=== PATIENT | male | born 1965 | race Caucasian/White ===

== ENCOUNTER → 2023-07-10 12:38 | Outpatient (REF) | payer OTHER, SELFPAY | LOC: HWRCS 12:38 | PROVIDERS: ATTENDING PHYSICIAN Physician Assistant Medical | DX: I10 Essential (primary) hypertension (principal); I34.0 Nonrheumatic mitral (valve) insufficiency; R01.1 Cardiac murmur, unspecified | CPT/HCPCS: 93306 ==

== ENCOUNTER → 2024-01-12 13:53 | Outpatient (REF) | payer OTHER, SELFPAY | LOC: HWRCS 13:53 | PROVIDERS: ATTENDING PHYSICIAN Internal Medicine; FAMILY PHYSICIAN Physician Assistant Medical | DX: I10 Essential (primary) hypertension (principal); I34.0 Nonrheumatic mitral (valve) insufficiency; I35.1 Nonrheumatic aortic (valve) insufficiency; I37.0 Nonrheumatic pulmonary valve stenosis; I77.810 Thoracic aortic ectasia | CPT/HCPCS: 93306 ==

== ENCOUNTER → 2024-06-30 15:51 | Outpatient (REF) | payer OTHER, SELFPAY | LOC: RCS 15:51 | PROVIDERS: ATTENDING PHYSICIAN Internal Medicine; FAMILY PHYSICIAN Physician Assistant Medical | DX: I34.0 Nonrheumatic mitral (valve) insufficiency (principal); I10 Essential (primary) hypertension; I35.1 Nonrheumatic aortic (valve) insufficiency; I37.0 Nonrheumatic pulmonary valve stenosis; I77.810 Thoracic aortic ectasia | CPT/HCPCS: 93306 ==

== ENCOUNTER 2024-07-13 09:34 | Day surgery (SDC) | payer OTHER, SELFPAY ==
[2024-07-13] VITALS (15 sets, daily range): BP systolic 125–150; BP diastolic 71–89
--- NOTE | 2024-07-13 14:46 | PTCARENOTE ---
MARKOR PA at pt bedside speaking to pt and pt's family.
--- NOTE | 2024-07-13 15:09 | ITS.CL.CATH ---
Communication Analyst - Catheterization
Cardiac Catheterization
Procedure Report:
CARDIAC CATHETERIZATION REPORT
Date of Procedure: 07/13/2024
Referring: Juan Antonio Johnson M.D., Ph.D.
Indication: Severe, multi valvular disease, preoperative.
PROCEDURE:
1. Right heart catheterization.
2. Coronary angiography.
3. Left heart catheterization.
A total of 5 minutes of procedural/moderate sedation was utilized. An independent director medical science was present to assist with and help manage the patient's level of consciousness and physiologic status.
ACCESS:
1. 6 Mongolian right radial artery using modified Seldinger technique.
2. 5 Mongolian right antecubital vein using a previously placed IV.
CATHETERS:
1. 5 Mongolian balloon wedge.
2. 5 Mongolian JR4.
3. 5 Mongolian JL 3.5.
HEMODYNAMIC DATA
Weight (kg): 82.6
AO (s/d/x, mmHg): 117/72/91
LV (s/x, mmHg): 119/14
PCWP (a/v/x, mmHg): 19/24/15
PA (s/d/x, mmHg): 30/15/20
RV (s/x, mmHg): 30/8
RA (a/v/x, mmHg): 12/8/8
SVC SvO2 (%): 74.7
IVC SvO2 (%): Not obtained.
RA SvO2 (%): Not obtained.
RV SvO2 (%): Not obtained.
PA SvO2 (%): 67.0
SaO2 (%): 95.0
Hbg (g/dL): 15.5
ARELI
CO (L/min): 4.15
CI (L/min/m2): 2.00
Thermodilution
CO (L/min): Not performed.
CI (L/min/m2): Not performed.
TPG (mmHg): 5
PVR (Ambrosio Units): 1.20
SVR (dynes*seconds*cm^-5): 1600
AVO2 Diff (Volume %): 5.90
AV gradient (x, mmHg): None.
AV area (cm2): Normal.
MV gradient (x, mmHg): Not obtained.
MV area (cm2): Not obtained.
LEFT VENTRICULOGRAPHY: Not performed.
AORTOGRAPHY: Not performed.
CORONARY ANGIOGRAPHY
Dominance: Left.
Left Main: Extremely large, bifurcating vessel. There is no coronary artery disease.
LAD: Large size vessel giving rise to 2 diagonals before wrapping around the apex. There is mild to moderate tortuosity. There is no coronary artery disease.
Ramus: Congenitally absent.
Circumflex: Large size, dominant vessel giving rise to 1 large obtuse marginal, followed by a left posterolateral branch then terminating as a left posterior descending artery. The obtuse marginal bifurcates into an upper and lower branch and
supplies the entirety of the lateral wall. There is no coronary artery disease.
RCA: Small size, nondominant vessel. There is no coronary artery disease.
INTERVENTIONS
None.
Closure Device: Vascular band for the right radial artery, manual pressure for the right antecubital vein.
Radiation dose (mGy): 229.29
DAP (cm2.Gy): 21.5681
Fluoroscopy time (minutes): 3.7
CONCLUSIONS:
1. Left dominant circulation with no coronary artery disease.
2. Mildly elevated filling pressures (LVEDP = 14 mmHg, PCWP = 15 mmHg at 82.6 kg).
3. Severe mitral valve regurgitation and aortic valve insufficiency by echocardiography.
RECOMMENDATIONS:
1. Expectant management after cardiac catheterization via right radial/antecubital approach.
2. Limited weight bearing on the right wrist for one week.
3. Referral to CT surgery for multivalve intervention.
Copy to: Juan Antonio Johnson M.D., Ph.D.
Viktor Robert DO, FACC, FACP
== END 2024-07-13 17:30 | disposition home or self-care (01) ==
LOC: CATH 09:34
PROVIDERS: ATTENDING PHYSICIAN Internal Medicine Cardiovascular Disease; FAMILY PHYSICIAN Physician Assistant Medical; OTHER PHYSICIAN Internal Medicine
DX: I08.0 Rheumatic disorders of both mitral and aortic valves (principal); I10 Essential (primary) hypertension; I44.0 Atrioventricular block, first degree; R73.9 Hyperglycemia, unspecified; Z87.891 Personal history of nicotine dependence
CPT/HCPCS: 93312; 93320; 93325; 93460; C1894; Q9967

== ENCOUNTER → 2024-08-02 08:34 | Outpatient (REF) | payer OTHER, SELFPAY | LOC: RAD 08:34 | PROVIDERS: ATTENDING PHYSICIAN Thoracic Surgery (Cardiothoracic Vascular Surgery) | DX: I34.0 Nonrheumatic mitral (valve) insufficiency (principal); I35.0 Nonrheumatic aortic (valve) stenosis; Z01.810 Encounter for preprocedural cardiovascular examination | CPT/HCPCS: 71275; Q9967 ==

== ENCOUNTER 2024-08-18 07:42 | Inpatient (IN) | payer OTHER, SELFPAY ==
[2024-08-11 12:20] VITALS: BMI 24.5
[2024-08-11 12:39] LABS: Urine Albumin Negative (Neg - Trace); Urine Bilirubin Negative (Negative); Urine Character Clear (Clear); Urine Color Yellow; Urine Glucose Negative (Negative); Urine Ketone Negative (Negative); Urine Leukocyte Negative (Negative); Urine Nitrite Negative (Negative); Urine Occult Blood Negative (Negative); Urine Specific Gravity 1.005 (<1.030); Urine Urobilinogen Negative (Neg - 1+)
[2024-08-11 12:43] LABS: % Basophils 0.8 % (0-2); % Eosinophils 0.9 % (0-6); % Immature Granulocytes 0.3 % (0-0.5); % Lymphocytes 30.5 % (20.5-51.1); % Neutrophils 57.5 % (42.2-75.2); Absolute Basophils 0.1 10^3/uL (0-0.2); Absolute Eosinophils 0.1 10^3/uL (0-0.7); Absolute Monocytes 0.7 10^3/uL (0.1-0.6); Absolute Neutrophils 3.8 10^3/uL (1.4-6.5); Hematocrit 44.7 % (39.0-52.0); Hemoglobin 15.7 g/dL (13.0-18.0); Mean Corp Hgb Conc. 35.1 g/dL (33.0-37.0); Mean Corpuscular Hgb 32.8 pg (27.0-31.0); Mean Corpuscular Volume 93.3 fL (80.0-94.0); Nucleated Red Blood Cells % 0 % (-); Platelet Count 192 10^3/uL (130-400); Red Blood Cell Count 4.79 10^6/uL (4.70-6.10); White Blood Cell Count 6.5 10^3/uL (4.8-10.8)
[2024-08-11 12:49] LABS: INR 0.95; PT 13.2 Sec (11.4-14.6)
[2024-08-11 12:50] LABS: APTT 31.1 Sec (23.4-35.0)
--- NOTE | 2024-08-11 13:17 | CM ---
Chart reviewed. Met with the patient in PAT. Reviewed preoperative and postoperative instructions and restrictions, along with showering instructions. Gave patient 2 soaps. Patient is agreeable to a home visit by CT Transitional RN. Patient is
independent of ADLS, currently working, lives with his SO in a 2 [address], 2 [address]IN[address], 0 DME. Plan is for the patient to return home with CT Transitional RN.
[2024-08-11 13:28] LABS: ALT (SGPT) 18 U/L (0-50); AST (SGOT) 25 U/L (17-59); Albumin 5.1 g/dl (3.5-5.0); Alkaline Phosphatase 65 U/L (38-126); Blood Urea Nitrogen 17 mg/dl (9-20); Calcium 9.9 mg/dl (8.4-10.2); Carbon Dioxide 26 mmol/L (22-30); Chloride 101 mmol/L (98-107); Direct Bilirubin 0.2 mg/dl (0.0-0.4); Estimated Creatinine Clearance > 125 ml/min; Glucose 109 mg/dl (70-99); Potassium 4.1 mmol/L (3.5-5.1); Sodium 137 mmol/L (135-145); Total Bilirubin 1.4 mg/dl (0.2-1.3); Total Protein 8.1 g/dl (6.3-8.2); eGFR > 60.00
[2024-08-11 13:48] LABS: Glycohemoglobin (HgbA1c) 5.3 % (4.0-5.6)
[2024-08-18] VITALS (8 sets, daily range): BP systolic 99–120; BP diastolic 56–83; BMI 22.5
--- NOTE | 2024-08-18 08:03 | PTCARENOTE ---
Patient admitted into [address] Heck; pt AAOx3; pt confirmed 2 showers at home; NPO since 08/17/2024 at 2200; medication list reviewed with patient; updated patient and family on plan for today; pt awaiting OR.
--- NOTE | 2024-08-18 08:56 | CM ---
CM following for DC planning needs.
Patient in OR today for planned CT Surgery.
Reviewed initial assessment. Pt. resides w/ sig. other in a private, 2 [address] w/ 2 [address]IN[address]. 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
Antic. DC plan is for home w/ CT Transitional Care RN.
CM to follow.
[2024-08-18] MEDS: PROTONIX 40 MG PO (09:14)
[2024-08-18] MEDS: LOPRESSOR 25 MG PO (09:14)
[2024-08-18] MEDS: MAGNESIUM OXIDE 500 MG PO (09:14)
[2024-08-18] MEDS: BACTROBAN 2% OINTMENT 1 APPLIC NASAL ×2 (09:17→20:49)
--- NOTE | 2024-08-18 10:39 | PTCARENOTE ---
Patient sent to [facility] via bed; bedside report given to [facility] RN.
[2024-08-18 11:30] LABS: ACT+ - POC 131 Seconds (82-134)
[2024-08-18 12:13] LABS: Urine Albumin 1+ (Neg - Trace); Urine Bilirubin Negative (Negative); Urine Character Clear (Clear); Urine Color Yellow; Urine Glucose Negative (Negative); Urine Ketone Negative (Negative); Urine Leukocyte Negative (Negative); Urine Nitrite Negative (Negative); Urine Occult Blood Negative (Negative); Urine Urobilinogen Negative (Neg - 1+)
[2024-08-18 12:29] LABS: Urine Bacteria Few (Negative); Urine Red Blood Cell 0-2 /HPF (0-2); Urine Squamous Cell 0-2 /LPF (Few); Urine White Cell 0-2 /HPF (0-5)
[2024-08-18 12:34] LABS: B.E. - POC -1.1 mmol/L; Glucose - POC 111 mg/dl (70-99); HCO3 - POC 23 mmol/L (21-28); Hematocrit - POC 42 % PCV (42-52); Hemodilution- POC No; Hemoglobin Calculated - POC 14.4; Ionized Calcium - POC 1.18 mmol/L (1.15-1.33); Lactate - POC 0.69 mmol/L (0.36-0.75); O2 Saturation %Calculated-POC 99.4 % (94-98); PCO2 - POC 35 mmHg (35-48); PO2 - POC 153 mmHg (83-108); POC Comment PRE; Potassium - POC 3.4 mmol/L (3.5-5.1); Sodium - POC 144 mmol/L (136-145); Specimen Type - POC Arterial; pH - POC 7.42 (7.35-7.45)
[2024-08-18 12:59] LABS: ACT+ - POC 968 Seconds (82-134)
[2024-08-18 13:36] LABS: B.E. - POC 1.5 mmol/L; Glucose - POC 142 mg/dl (70-99); HCO3 - POC 27 mmol/L (21-28); Hematocrit - POC 35 % PCV (42-52); Hemodilution- POC Yes; Hemoglobin Calculated - POC 11.8; Ionized Calcium - POC 1.09 mmol/L (1.15-1.33); Lactate - POC 0.64 mmol/L (0.36-0.75); O2 Saturation %Calculated-POC 99.9 % (94-98); PCO2 - POC 42 mmHg (35-48); PO2 - POC 256 mmHg (83-108); POC Comment CPB; Potassium - POC 4.6 mmol/L (3.5-5.1); Sodium - POC 141 mmol/L (136-145); Specimen Type - POC Arterial; pH - POC 7.41 (7.35-7.45)
[2024-08-18 13:50] LABS: ACT+ - POC 571 Seconds (82-134)
--- NOTE | 2024-08-18 13:57 | W.PN.CD ---
Today's Communication / Plan
-
Routine post operative management.
Wean vent to extubation.
Wean pressors/inotropes for a MAP > 65 mmHg, CI > 1.8 L/min/m2.
Coagulopathy management per CT surgery.
Impression / Plan
-
Impression/Plan: 58 y/o with HTN, HLD, tobacco abuse history, severe myxomatous mitral regurgitation and moderate/severe aortic valve insufficiency admitted for AVR/MVr.
#Severe myxomatous mitral valve regurgitation
-Chronic, progressive.
-MVr with Dr. Heck today.
-Routine post operative management.
-Correct coagulopathy as indicated (FFP pending, possible factor VII).
-Wean vent to extubate.
-Wean pressors/inotropes to keep MAP > 65 mmHg, CI > 1.8 L/min/m2.
-Currently on norepinephrine 4 mcg/kg/min.
-If needed, would favor dobutamine to support HR and CI.
#Moderate/severe aortic valve insufficiency
-Chronic, progressive.
-AVR with Dr. Heck today.
-Post operative management as above.
#HTN
-Chronic.
-Adjust anti-hypertensive medications when hemodynamically stable.
Critical Care Time = 45 minutes.
Subjective/Interval History:
Intubated/sedated.
Telemetry shows atrial standstill, junctional escape.
BP initially marginal, improved with atrial pacing.
He has been coagulopathic. CT surgery is infusing products.
DATA:
Cardiac Catheterization, 07/13/2024:
CONCLUSIONS:
1. Left dominant circulation with no coronary artery disease.
2. Mildly elevated filling pressures (LVEDP = 14 mmHg, PCWP = 15 mmHg at 82.6 kg).
3. Severe mitral valve regurgitation and aortic valve insufficiency by echocardiography.
Transesophageal echocardiography, 07/13/2024:
CONCLUSIONS
Mildly dilated LV with normal systolic function and no regional wall motion
abnormalities.
LVEF is 60-65% by visual estimation.
Normal RV size and function.
Myxomatous mitral valve disease with flail P3 segment resulting in severe
eccentric mitral regurgitation that is anteriorly directed.
Trileaflet aortic valve with likely moderate aortic insufficiency no
significant stenosis.
Compared to transthoracic echo from June 30, 2024, etiology of severe MR is
better appreciated as described above.
CTA Chest, 08/02/2024:
IMPRESSION:
1. Mild aneurysmal dilation of the ascending thoracic aorta, measuring 4 cm in greatest orthogonal dimension.
2. Mild calcification of the mitral and aortic valves. Mild coronary arterial calcification.
3. Bilateral lung nodules, measuring up to 4 mm in diameter. As per Fleischner Society recommendations, no further CT follow-up is required unless the patient is high risk for lung carcinoma, in which case a follow-up chest CT should be considered
in approximately 12 months.
Physical Exam
Vital Signs/Labs
Vital Signs
Pulse Resp BP Pulse Ox
83 20 166/99 97
08/18/24 09:14 08/18/24 07:48 08/18/24 09:14 08/18/24 07:48
08/17/24 08/18/24 08/19/24
11:59 11:59 11:59
Actual Weight 79.6 kg
08/11/24 12:01
08/11/24 12:01
PT 13.2 Sec (11.4-14.6) 08/11/24 12:01
INR 0.95 08/11/24 12:01
APTT 31.1 Sec (23.4-35.0) 08/11/24 12:01
Physical Exam
Constitutional: No acute distress and Comfortable
EENT: Anicteric and Other (ET tube in place.)
Cardiovascular: Rhythm & rate is regular, Pedal edema is absent, JVD pressure is normal, S1S2 is normal and Murmur/rub/gallop absent
Respiratory: Respiratory effort normal, Lungs clear to auscul., Wheeze Absent, Crackles Absent and Rhonchi Absent
GI: Soft, Distention absent, Flat, Non tender and Normal bowel sounds
Neuro/Psych: Other (Intubated, sedated.)
Data Reviewed
-
Date of Service: August 18, 2024
Medical Decision Making: Reviewed Test Results and Test Interpretation
EKG: Tracing Personally Visualized and interpreted and Report Reviewed by me
Echo: Report Reviewed by me
X-Ray/CT/US/MRI/NUC/PET: Image Personally Visualized and interpreted and Report Reviewed by me
Medical Tests (PFT, Pathology etc): Image Personally Visualized and interpreted, Report Reviewed by me and Discussed with Physician
Labs: Labs Reviewed by me
Old Records: Reviewed
[2024-08-18 14:19] LABS: ACT+ - POC 628 Seconds (82-134)
[2024-08-18 14:47] LABS: ACT+ - POC 463 Seconds (82-134)
[2024-08-18 15:03] LABS: ACT+ - POC 565 Seconds (82-134)
[2024-08-18 15:26] LABS: B.E. - POC 3.7 mmol/L; Glucose - POC 101 mg/dl (70-99); HCO3 - POC 30 mmol/L (21-28); Hematocrit - POC 34 % PCV (42-52); Hemodilution- POC Yes; Hemoglobin Calculated - POC 11.5; Ionized Calcium - POC 1.06 mmol/L (1.15-1.33); Lactate - POC < 0.30 mmol/L (0.36-0.75); PCO2 - POC 52 mmHg (35-48); PO2 - POC 436 mmHg (83-108); POC Comment CPB; Potassium - POC 4.2 mmol/L (3.5-5.1); Sodium - POC 141 mmol/L (136-145); Specimen Type - POC Arterial; pH - POC 7.37 (7.35-7.45)
[2024-08-18 15:26] LABS: B.E. - POC 2.2 mmol/L; Glucose - POC 166 mg/dl (70-99); HCO3 - POC 30 mmol/L (21-28); Hematocrit - POC 33 % PCV (42-52); Hemodilution- POC Yes; Hemoglobin Calculated - POC 11.3; Ionized Calcium - POC 1.12 mmol/L (1.15-1.33); Lactate - POC < 0.30 mmol/L (0.36-0.75); O2 Saturation %Calculated-POC 99.9 % (94-98); PCO2 - POC 61 mmHg (35-48); PO2 - POC 396 mmHg (83-108); POC Comment CPB; Sodium - POC 142 mmol/L (136-145); Specimen Type - POC Arterial
[2024-08-18 15:26] LABS: B.E. - POC -2.4 mmol/L; Glucose - POC 177 mg/dl (70-99); HCO3 - POC 21 mmol/L (21-28); Hematocrit - POC 40 % PCV (42-52); Hemodilution- POC Yes; Hemoglobin Calculated - POC 13.6; Ionized Calcium - POC 1.08 mmol/L (1.15-1.33); Lactate - POC < 0.30 mmol/L (0.36-0.75); O2 Saturation %Calculated-POC 99.9 % (94-98); PCO2 - POC 33 mmHg (35-48); PO2 - POC 350 mmHg (83-108); POC Comment WARM; Potassium - POC 4.4 mmol/L (3.5-5.1); Sodium - POC 142 mmol/L (136-145); Specimen Type - POC Arterial; pH - POC 7.42 (7.35-7.45)
[2024-08-18 15:36] LABS: ACT+ - POC > 1003 Seconds (82-134)
[2024-08-18 15:38] LABS: B.E. - POC 0.3 mmol/L; Glucose - POC 164 mg/dl (70-99); HCO3 - POC 26 mmol/L (21-28); Hematocrit - POC 34 % PCV (42-52); Hemodilution- POC Yes; Hemoglobin Calculated - POC 11.7; Ionized Calcium - POC 1.35 mmol/L (1.15-1.33); Lactate - POC 1.53 mmol/L (0.36-0.75); O2 Saturation %Calculated-POC 99.8 % (94-98); PCO2 - POC 43 mmHg (35-48); PO2 - POC 237 mmHg (83-108); POC Comment CPB; Potassium - POC 4.4 mmol/L (3.5-5.1); Sodium - POC 142 mmol/L (136-145); Specimen Type - POC Arterial; pH - POC 7.38 (7.35-7.45)
[2024-08-18 15:42] LABS: ACT+ - POC 195 Seconds (82-134)
[2024-08-18 15:46] LABS: ACT+ - POC 126 Seconds (82-134)
[2024-08-18 15:50] LABS: B.E. - POC -2.5 mmol/L; Glucose - POC 123 mg/dl (70-99); HCO3 - POC 23 mmol/L (21-28); Hematocrit - POC 33 % PCV (42-52); Hemodilution- POC Yes; Hemoglobin Calculated - POC 11.2; Ionized Calcium - POC 1.37 mmol/L (1.15-1.33); Lactate - POC 1.84 mmol/L (0.36-0.75); O2 Saturation %Calculated-POC 99.9 % (94-98); PCO2 - POC 39 mmHg (35-48); PO2 - POC 289 mmHg (83-108); POC Comment POST; Potassium - POC 3.7 mmol/L (3.5-5.1); Sodium - POC 146 mmol/L (136-145); Specimen Type - POC Arterial; pH - POC 7.37 (7.35-7.45)
[2024-08-18 15:51] LABS: ACT+ - POC 126 Seconds (82-134)
--- NOTE | 2024-08-18 16:05 | CON.INTV ---
Consultation
Consultation Request
Date/Time Consultation Requested: 04/24/2019 5-4 40 5 PM
Date/Time Consultation Performed: 04/24/[id number] 5-5 40 5 PM
Requesting Provider: cardiothoracic surgery
Performing Provider: Dr. Mcclendon
Reason for Consultation: postoperative ventilator/critical care management
Medical History
-
Chief Complaint: mitral and aortic valve abnormalities
History of Present Illness:
58-year-old former smoking male with history of hypertension, hyperglycemia, anxiety who had significant mitral and aortic valve disease and underwent MVR/AVR-pin machine tender consulted for postoperative ventilator/critical care management 08/18/2024.
The patient is sedated on the ventilator and review of systems was unobtainable. Operative records were reviewed. Chest tube output was noted. Pressors were reviewed as well as ventilator settings.
Past Medical History
Past Medical History: None (. Hypertension. Myxomatous mitral valve. Aortic stenosis. Former smoker quit 2014. Anxiety. Hyperglycemia.)
Social History
Tobacco: Former Smoker ( 97-[id number] and half packs per day for 25 years,Quit 2014)
Alcohol: Daily ( 25-50 beers weekly)
Drug: None
Personal: Other ( engaged for 30 years)
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
Occupational Exposures: no known asbestos exposure
Environmental Exposures: no known tuberculosis exposure
Family History
Family History: Reviewed & Not Pertinent
Allergies / Home Medications
Allergies
Allergy/AdvReac Type Severity Reaction Status Date / Time
No Known Allergies Allergy Verified 08/09/24 16:05
Home Medications
�Medication �Instructions �Recorded �Confirmed �Last Taken �Type
metoprolol succinate 50 mg capsule 50 mg PO DAILY 07/13/24 08/18/24 08/17/24 06:00 History
sprinkle, ext. release 24 hr
Review of Systems
-
Unable to Obtain full review of systems at this time due to: Patient Intubation
Vitals / Labs / Diagnostic Testing
Vital Signs
Pulse Resp BP Pulse Ox
83 20 166/99 97
08/18/24 09:14 08/18/24 07:48 08/18/24 09:14 08/18/24 07:48
Diagnostic Testing:
Physical Exam
-
Exam:
well-nourished and well-developed in no apparent distress
HEENT-atraumatic, normocephalic, oral tracheal intubation
Heart-regular rate and rhythm-no murmurs, rubs or gallops
Chest-clear to auscultation, no wheezes, crackles, median sternotomy bandage is not removed
Abdomen soft nondistended
Extremities-no cyanosis, clubbing, edema and good peripheral pulses
Integument-intact, no rashes, lesions or ecchymosis
Neurologically not alert, not oriented, not moving any of his extremities sedated on a ventilator
Assessment
-
58-year-old former smoking male with history of hypertension, hyperglycemia, anxiety who had significant mitral and aortic valve disease and underwent MVR/AVR-pin machine tender consulted for postoperative ventilator/critical care management 08/18/2024.
Myxomatous mitral valve/aortic stenosis
Status post MVR/AVR-Dr. Heck-08/18/2024
Mild hyperglycemia
Pulmonary nodules-incidentally noted on CT angiogram 08/02/24
Conditions present prior to admission:
Hypertension.
Myxomatous mitral valve.
Aortic stenosis.
Former smoker quit 2014.
COPD-FEV1 2.96-73%
Anxiety.
Hyperglycemia.
Plan
Ventilator settings reviewed
FiO2 will be weaned
Minute ventilation will be adjusted
Arterial blood gases will be monitored
Spontaneous breathing trial will be attempted with hopeful extubation after anesthesia/sedation wear off
Nebulizers if needed
Pulmonary artery catheter parameters will be followed
Pressors/antihypertensive/inotropes/diuretics will be provided as needed
Monitor chest tube output
Monitor hemoglobin
Monitor platelet count and coags
Transfuse blood product if needed
CT surgery following chest tubes
Monitor closely for alcohol withdrawal
Thiamine and folate if suspected
Ativan as needed
Monitor blood sugar
Insulin drip per protocol
Aspiration precautions
VAP prevention protocol
DVT prophylaxis
Early nutrition
Early mobilization
Outpatient pulmonary follow-up recommended-PFTs, yearly low-dose lung cancer screening CT-needs follow-up of pulmonary nodules as well
Critical care statement: A total of 55 minutes of critical care time was provided for this patient today. This includes management of ventilator, spontaneous breathing trial, arterial blood gases, pressors, of unstable vital signs, evaluation of the
patient at bedside, reviewing the patient's pertinent medical records including radiographs, microbiology, laboratory evaluations, and discussion with primary team and critical care nursing.
Diagnostic data:
CT angiogram 08/02/24 mild aneurysmal dilation ascending thoracic aorta measuring 4 cm, bilateral lung nodules measuring 4 mm- - 4 mm in the right middle lobe and 4 mm left upper lobe
Echocardiogram 06/30/2024-EF 65%, severe mitral regurgitation, moderate to severe aortic regurgitation
Cardiac catheterization 07/13/2024-mildly elevated filling pressures, severe mitral valve regurgitation and aortic valve insufficiency, no coronary artery disease
Spirometry 08/07/24-FEV1 2.9-73%, FVC 5-95%
Data Reviewed
-
PFT: Report reviewed by me
EKG: Report reviewed by me
Radiology: Report reviewed by me
CT Scan: Report reviewed by me
Medical Tests (Nuc Med, Echo etc): Report reviewed by me
Labs: Labs reviewed by me
Old Records: Reviewed
Critical Care Time (in minutes): 55
--- NOTE | 2024-08-18 16:18 | W.PN.CT.SURG ---
Addendum entered and electronically signed by Zachary Heck MD 08/19/24 11:35:
Procedure(s) Performed:
1. Standard sternotomy with aortic and bicaval cannulation
2. Surgical aortic valve replacement [29 mm prosthesis]
3. Radical mitral valve repair [quadrangular resection of P3 and sliding plasty of P2 onto P3, 6 pairs of Index-Jerry cords placed with 4 going to the posterior leaflet and 2 going to the anterior leaflet at A2, 40 mm band annuloplasty, debridement of
mitral annular calcification]
4. Left atrial appendage exclusion [40 mm device]
5. Placement of temporary atrial and ventricular pacing wires
6. Transesophageal echocardiography
7. PFO/ASD closure, done primarily
After removal of the left atrial retractors, a small PFO was identified as there was venous air, this was closed after probing and identifying it with a hook. I primarily closed it with a 5-0 prolene suture in an [id number] suture.
Original Note:
CT Surgery Operative Note
-
CARDIAC SURGERY OPERATIVE REPORT
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
Postoperative Diagnosis: Same
Procedure(s) Performed:
1. Standard sternotomy with aortic and bicaval cannulation
2. Surgical aortic valve replacement [29 mm prosthesis]
3. Radical mitral valve repair [quadrangular resection of P3 and sliding plasty of P2 onto P3, 6 pairs of Index-Jerry cords placed with 4 going to the posterior leaflet and 2 going to the anterior leaflet at A2, 40 mm band annuloplasty, debridement of
mitral annular calcification]
4. Left atrial appendage exclusion [40 mm device]
5. Placement of temporary atrial and ventricular pacing wires
6. Transesophageal echocardiography
Date of Surgery: 08/18/2024
Comorbidities:
1. 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
2. Moderately severe aortic valve insufficiency secondary to calcium and prolapsing of the noncoronary cusp with involvement of the commissure
3. Family history for thoracic aortic aneurysms requiring intervention
4. Family history for mitral valve insufficiency requiring intervention
5. Hypertension
6. First-degree AV block
7. Former history of smoking
8. Mild pectus excavatum
Attending Surgeon: Zachary Heck MD, MS
Assistants: Zachary Wilburn PA-C (present and necessary to first beater, retraction, suction, exposure, suture management, and wound closure under my direction)
Anesthesiology: Mateusz Santizo MD and Joey Camara CRNA
Scrub and Circulating RNs: Manuel Yu RN and Phan Bush RN and Klaudia Calderon RN
Hide Curer: Patricio Hall CCP
Anesthesia: GETA
EBL: per perfusion records
Products: Planning to give plts and ffp in CVICU
CPB Time: 185 minutes
Aortic Cross Clamp Time: 118 (1st run) and 43 (2nd run) minutes
Indication(s) for Procedures: This is a 58-year-old male with known mitral valve insufficiency who was relatively asymptomatic aside from feeling more tired recently. Given the repair ability of his valve and his young age, I do believe he met a
class IIa indication for surgical intervention. Given that he had moderately severe aortic valve insufficiency this would be addressed at time of operation. His brother recently underwent emergent mitral valve surgery for an acute flail and
respiratory failure. And his family history is significant for aortopathy's requiring intervention.
Aortic Valve Description: Trileaflet valve with significant prolapsing of the noncoronary cusp extending all the way to the left non commissure. There is also calcium at the base of the noncoronary cusp that spanned the aorto mitral curtain into
the base tethering down the leaflet. I felt that this was not likely to be durable and in the form of repair and he also had evidence of annular ventricular disjunction with muscle creeping up above the annulus.
Mitral Valve Description: Very abnormal appearing mitral valve, significant thickening of both the anterior and posterior leaflets, severely dilated annulus with a long anterior leaflet measuring approximately 3.5 cm. There was a dense area of
mitral annular calcification at the P2 segment that extended onto the base of the leaflet. There was a flail segment with multiple torn cords of P3. There was clearly evidence of myxomatous degeneration of the valve.
Findings: His left ventricular ejection fraction preoperatively was normal at 60% with no significant regional wall motion abnormalities. Following surgery his EF remained the same at 60% with no new regional wall motion abnormalities. He was in a
bigeminy rhythm after the surgery and so there was some dyskinesis. His aortic valve was ultimately replaced as there was some calcium at the base of the noncoronary cusp that spanned down towards the aorto mitral curtain. There is also
significant prolapse and tethering of the body of the noncoronary cusp I resulted in both the central jet and the smaller commissural jet at the left none commissure. The aortic valve leaflets were then excised and sized to a 29 mm bioprosthesis.
A total of 17 nonpledgeted 2 Ethibond sutures were placed circumferentially and secured the valve in place using core knots. The mitral valve was repaired initially by performing a quadrangular resection at the P3 segment and reapproximation of the
leaflet with some plication of the annulus using 5-0 Prolene sutures. I then noticed that there was an area of calcification at the body of P2 extending from the annulus. This was resected and sliding plasty was performed in order to move P2
towards the P3 remaining scallop. The P2 scallop was then reattached to the annulus using 5-0 Prolene in a running double layer fashion. Initially to CV 4 Index-Jerry sutures were used to anchor the P2 and P3 segments of the posterior leaflet to the
papillary muscle heads and the annulus was reinforced with the largest size been possible, 40 mm physio flex secured to place with 12 nonpledgeted 2 Ethibond sutures. Coming off pump with the first time there was a mild to moderate degree of mitral
valve insufficiency that was intermittent secondary to systolic anterior motion the leaflets. I elected to rearrest with a forearm dose of antegrade cardioplegia and then cut out the old CV 4 Index-Jerry cords in place 2 sets of CV 4 Chord-X chordal
systems to the posterior medial papillary muscle heads with 4 of the cords anchored to the posterior leaflet from P1 all the way to P3 and then 2 of the Index-Jerry sutures anchored to the A2 segment of the anterior leaflet. This resulted in excellent
coaptation with a more posterior coaptation margin and no systolic anterior motion. The final GIANNI evaluation of the valve off of cardiopulmonary bypass abnormal blood pressure was no residual mitral valve insufficiency, no systolic anterior motion
the leaflets, and a mean gradient of 1 across the valve. There is no paravalvular leak of the aortic valve bioprosthesis and a mean gradient of 3 across that valve. He did not require any pacing postoperatively, he did not require any inotropic
support postoperatively, he was a little bit oozy likely from the long pump run and so blood products will be given in the CVICU. His left atrial appendage was verified to be free of any thrombus or debris preoperatively and found to be totally
occlusive postoperatively.
Specimen(s): P3 scallop, mitral annular calcification, aortic valve leaflets
Prosthesis:
1. 40 mm left atrial appendage clip, serial #[id number]
2. 40 mm Isaacs physio flex annuloplasty band, serial #[id number]
3. 29 mm Isaacs Inspiris Resilia aortic valve bioprosthesis, serial #[id number]
4. 2 sets of CV 4 Index-Jerry Chord-X Chordal System
5. Multiple 5-0 Prolenes
Description of Procedure: The patient was taken to the operating room. Their identity and procedure to be performed were verified and they were positioned supine on the operating table. Induction via general anesthesia with endotracheal intubation
was performed and central venous access and arterial monitoring were inserted. A preoperative transesophageal echocardiogram was performed to assess cardiac function and valvular function. The patient was then prepped and draped from chin to feet in
a sterile fashion. A preoperative time-out was performed with all members of the team present. A midline chest incision was performed along with median sternotomy. The innominate vein was isolated. Full heparinization was given (a total of 55,000
units). We created a pericardial well. The aortic cannulation site was chosen where it was soft, pliable, and free of calcium. Cannulation was performed with an arterial cannula in the ascending aorta, angled metal tip cannular in the superior vena
cava and straight bendable cannula in the inferior vena cava. The arterial cannula line had an appropriate bounce and correlating pressures. Next, a root vent/antegrade cannula was inserted into the ascending aorta. The ACT was confirmed to be over
400 and retrograde autologous priming was performed before commencing cardiopulmonary bypass. A retrograde coronary sinus catheter was placed via the right atrium. The pulmonary artery was away from the aorta to facilitate a clamp site.
Sondergaard�s groove was developed after creating the oblique sinus. A left ventricular vent was placed at the right superior pulmonary vein. The aortic cross-clamp was placed after decreasing the flow on the bypass and mean arterial pressure. A
total of 1.2L initial dose of retrograde and antegrade direct ostial Del-Nido cardioplegia solution was given and planned for re-dosing every 75 minutes as necessary. I initially started by giving retrograde and opening the ascending aorta and
placing stay sutures. Cardioplegia was visualized emanating from the left main once 600 cc was given, I than gave direct ostial down the right coronary ostia. There was rapid electro-mechanical arrest of the heart at 400 cc of cardioplegia. Cold
slush was placed into a lap on the RV and we systemically cooled to 34 degrees centigrade. Once the heart was fully arrested he was rotated medially and the left atrial appendage was clipped with a 45 mm device after dividing the ligament of
Ar.
Carbon dioxide was used to flood the field. I extended the aortotomy towards the pulmonary artery and down towards the noncoronary cusp above the level of the STJ. I examined the leaflets and found that they are likely not salvageable and there
was evidence of annular ventricular disjunction. The location of both left and right coronary vessels were visualized in the root. The leaflets were excised and sent for pathological assessment. The annulus was debrided of any calcium being mindful
of the annulus and membranous septum.
Next, the mitral valve was accessed via the left atrium followed by valve analysis. The mitral valve was repaired as described above. The left ventricular vent was repositioned across the mitral valve into the left ventricular and the left atrium
was closed with a 3-0 prolene.
I turned my attention back toward the root. A total of 17 non-pledgeted 2-0 ethibond inverted annular sutures were placed [id number] circumferentially. These were brought through the sewing cuff of the prosthetic valve which as then parachuted
into place. The left and right coronary ostia were visualized and were unobstructed by the valve. A Cor-Knot device was used to secure the annular sutures. The valve was inspected and was well seated. The aortotomy was approximated with 4-0 prolene
in two layers.
De-airing maneuvers were performed and temporary atrial and ventricular pacing wires were placed at the SVC/RA junction and base of the right ventricle, respectively. The patient was placed in a Trendelenburg position and flows on bypass were
lowered. The aortic cross clamp was removed and flows were slowly brought back up. The left atrial suture line was hemostatic. Transesophageal echocardiography revealed systolic anterior motion and a mild to moderate degree of intermittent
insufficiency. The AV prosthesis was well seated without PVL or AI. This was not satisfactory and so I elected to replace the cross-clamp and given additional antegrade dose of 400 cc of cardioplegia with rapid arrest at approximately 150 cc. The
left atrium was opened via the same incision and the previous cortex sutures were cut out. I then placed 2 Index-Jerry chordal systems with 4 pairs anchored to the posterior leaflet and 2 pairs anchored to the anterior leaflet. Dynamic pressurization
of the LV allowed me to customize the coaptation margin more posteriorly. The left atrium was then closed again with 3-0 Prolene. The head was then lowered and the flows were dropped and the cross-clamp was then removed again. De-airing maneuvers
were also performed. Review of the valve was much more acceptable with no residual mitral valve insufficiency and no systolic anterior motion of the leaflets. Once de-airing was satisfactory the left ventricular and root vents were removed. After
verifying acceptable parameters, we initiated weaning from cardiopulmonary bypass. Once we were off cardiopulmonary bypass, the venous cannulas was clamped and removed sequentially. A test dose of protamine was administered and the patient was
monitored for any adverse reaction before resuming protamine. Once half of the protamine dose was delivered, pump suckers were turned off and the systolic blood pressure was lowered for aortic decannulation. The aortic cannula was removed and purse
strings were tied down. All cannulation sites were oversewn with a 4-0 prolene. The left atrial suture line was inspected and hemostasis was confirmed. Mediastinal hemostasis was obtained. Two #24 Saad drains were placed within the pericardium. The
sternum was approximated with 4 #7 single and 3 #8 double stainless steel wires. Fascia was approximated with #1 vicryl suture. The subcutaneous, dermis and epidermis were closed in layers in a running fashion. The skin wound was cleansed and
dressed.
All instrument, sponge, and needle counts were confirmed to be correct x 2 at the end of the operation. The patient was transferred to the cardiac intensive care unit in critical but stable condition.
I, Dr. Zachary Heck, was present, scrubbed for, and performed all critical elements of this procedure.
Zachary Heck MD, MS
Cardiothoracic Surgeon
[facility]
This dictation was created using the [employer] dictation system. Please excuse any grammatical, typographical, or 'sound alike' errors
[2024-08-18 16:29] LABS: ACT-LR - POC 137 Seconds (116-155)
[2024-08-18] MEDS: NSS 500 IV (16:30)
[2024-08-18 16:43] LABS: Mixed Venous O2 Saturation 68.1 %
[2024-08-18 16:44] LABS: B.E. -3.6 mmol/L; HCO3 21.5 mmol/L (21-28); O2 Saturation % 99.9 % (94-98); PCO2 38 mmHg (35-48); PO2 237 mmHg (83-108); Potassium 3.8 mMOL/L (3.5-5.1); Sodium 138 mMOL/L (136-145); pH 7.36 (7.35-7.45)
[2024-08-18] MEDS: DDAVP 56 MCG IV (16:45)
[2024-08-18 16:48] LABS: Hematocrit 32.8 % (39.0-52.0); Hemoglobin 11.6 g/dL (13.0-18.0); Platelet Count 111 10^3/uL (130-400)
[2024-08-18 16:51] LABS: INR 1.54
[2024-08-18 16:52] LABS: APTT 33.7 Sec (23.4-35.0)
[2024-08-18 17:26] LABS: Blood Urea Nitrogen 15 mg/dl (9-20); Estimated Creatinine Clearance > 125 ml/min; Glucose 114 mg/dl (70-99)
[2024-08-18 17:30] LABS: Glucose - Point of Care 116 mg/dl (70-99)
[2024-08-18 17:31] LABS: ACT-LR - POC 141 Seconds (116-155)
[2024-08-18 17:39] LABS: Glucose - Point of Care 166 mg/dl (70-99)
[2024-08-18] MEDS: PROTAMINE 25 MG IV (17:40)
--- NOTE | 2024-08-18 17:48 | PTCARENOTE ---
1625 Patient arrived from [facility], report recieved from Dr Heck at bedside, attached to monitor. Patient had AVR Bio Valve replacement, MV repair, LLA clip place AV pacer wire CT X 2 MS, [place] @45m On Insilin and Precedex, Levo . CI 1.5 CO 3.2 in OR, CI
1.64/ CO3.37 on arrival in unit. ACT on arrival 137.Patient recieved 2 FFP, 2 Platelets given, repeat ACt 141. Garcia care done, Xray completed Protamine given at 1740. Precedex weaned down.
[2024-08-18] MEDS: DILAUDID 0.5 MG IV (17:59)
--- NOTE | 2024-08-18 18:22 | PTCARENOTE ---
1625 Patient arrived from [facility]; pt intubated and sedated; Pupils 2mm and reactive; Junctional on monitor labial SBPs; Epicardial AV pacer wire, set to DDD 40/11/0.4 no pacing noted; RITolu Low floated to 45, Left A-line and PIV x1 all lines
leveled and zeroed; Levo, Insulin and Precedex infusing see flow sheet for details; Lungs clear; ETT 8 23 @l lip; SIMV 500/14/10/60%; CT X [address] Maria R hendricks at bedside with team, DDAVP x1, FFP x2 and PLTs x2 ordered and given; ACT 137; CT x2 -20
wall suction no air leak or crepitus noted. Hypoactive bowel sound; Garcia catheter draining clear yellow urine secure with stat lock. palpable pulses throughout; no edema noted; all surgical sites C/D/I; see nursing documentation for further
details.
CI 1.64
CO 3.37
SVR 1613
SBP liable pacer setting changed to AAI 50/11/0.4 occasional pacing noted on monitor.
ACT at 1730 resulted at 141 Protamine given at 1740.
ACT @ 1845 134 updated CTNP
[2024-08-18 18:46] LABS: Glucose - Point of Care 130 mg/dl (70-99)
[2024-08-18 18:46] LABS: ACT-LR - POC 134 Seconds (116-155)
[2024-08-18] MEDS: KCL 50 IV (19:19)
[2024-08-18 19:27] LABS: B.E. - POC -0.7 mmol/L; Blood Urea Nitrogen - POC 16 mg/dl (3-120); Chloride - POC 108 mmol/L (96-111); Creatinine - POC 0.74 mg/dl (0.3-1.0); Glucose - POC 119 mg/dl (70-99); HCO3 - POC 25 mmol/L (21-28); Hematocrit - POC 28 % PCV (42-52); Hemodilution- POC No; Hemoglobin Calculated - POC 9.6; Ionized Calcium - POC 1.19 mmol/L (1.15-1.33); Lactate - POC 1.85 mmol/L (0.36-0.75); O2 Saturation %Calculated-POC 98.2 % (94-98); PCO2 - POC 42 mmHg (35-48); PO2 - POC 110 mmHg (83-108); Potassium - POC 4.1 mmol/L (3.5-5.1); Sodium - POC 147 mmol/L (136-145); Specimen Type - POC Arterial; pH - POC 7.38 (7.35-7.45)
[2024-08-18 19:58] LABS: Glucose - Point of Care 109 mg/dl (70-99)
[2024-08-18] MEDS: OFIRMEV 100 IV (20:03)
--- NOTE | 2024-08-18 20:30 | PTCARENOTE ---
Patient received Intubated/Ventilator/CPAP Wean. Patient extubated at 1935 without difficulty. O2 at 6L via NC. SpO2 98%. Patient A+A+Ox3. No neurological deficit noted. No c/o headache, dizziness or lightheadedness. Two Mediastinal chest
tubes - Intact and patent - 30 ml red drainage - No air leak. Chest tube dressing intact. Junctional Rhythm. Heart rate 50's. AV Wires. V-Wire off. AAI 50/11/0.4. Patient with no c/o chest pain, pressure or discomfort. Abdomen soft,
nondistended, nontender. Hypoactive bowel sounds. No BM. No c/o nausea. No vomiting. Garcia catheter - Temperature sensing - Sunshine, yellow urine - Outputs as documented. Positive, palpable pulses. No c/o back or flank pain. Right I.J.
Cordis/[place]. Left radial arterial line. A-Line, PAP, CVP - Pressure bag/saline flush - Flush without difficulty - Zeroed and calibrated - Waveform within normal limits. C.O. 4.61 C.I. 2.24 SVR 1058 PAP 25/18 (22) CVP 8. Sternal incision -
Surgical adhesive - Intact - Open to air. Patient resting in bed without difficulty. Assessment as documented.
[2024-08-18] MEDS: NEURONTIN PO ×2 (20:44→22:18)
[2024-08-18] MEDS: TYLENOL PO ×2 (20:44→22:18)
[2024-08-18] MEDS: SENOKOT-S PO (20:45)
[2024-08-18 20:49] LABS: Hematocrit 27.6 % (39.0-52.0); Hemoglobin 9.9 g/dL (13.0-18.0); Platelet Count 121 10^3/uL (130-400)
[2024-08-18 21:02] LABS: Glucose - Point of Care 113 mg/dl (70-99)
[2024-08-18] MEDS: ZOFRAN 4 MG IV (21:15)
--- NOTE | 2024-08-18 22:00 | PTCARENOTE ---
Lab H+H collected and sent. Hgb 9.9 Hct 27.6 Plt Count 121. Patient ordered and administered IV Ofirmev 1,000mg/100ml. Patient with c/o nausea. No vomiting. Zofran 4mg IV administered. No further c/o nausea. No further changes from previous
assessment.
[2024-08-18] MEDS: LOW STRENGTH ASPIRIN 81 MG PO ×2 (22:20→22:25)
[2024-08-18] MEDS: ANCEF 5 IV (22:21)
[2024-08-18] MEDS: CARDENE 200 IV (22:30)
[2024-08-18 22:49] LABS: B.E. -1.2 mmol/L; HCO3 23.6 mmol/L (21-28); Ionized Calcium 1.18 mMOL/L (1.15-1.33); O2 Saturation % 99.4 % (94-98); PCO2 39 mmHg (35-48); PO2 97 mmHg (83-108); Potassium 4.3 mMOL/L (3.5-5.1); pH 7.39 (7.35-7.45)
[2024-08-18] MEDS: CORDARONE 103 MG IV (22:50)
[2024-08-18 22:59] LABS: Glucose - Point of Care 136 mg/dl (70-99)
--- NOTE | 2024-08-18 23:00 | PTCARENOTE ---
C.O. 4.96 C.I. 2.41 SVR 1048 PAP 32/18 (22) CVP 12. monitor tech displayed 7 beat VT. Patient with no c/o chest pain, pressure, palpitations or discomfort. O2 at 4L via NC. SpO2 99%. No c/o SOB. Labs ordered and sent - ABG/iCA/K/MAG.
Physician's [employer] Specialist for CT Surgery, Stephanie Victor PA-C, adjusted Epicardial pacemaker - AAI 70/11/0.4. Patient now 100% A-Pacing. Cardene gtt 2.5 mg/hr (12.5 ml/hr) started due to increasing blood pressure related to increased heart rate.
Amiodarone Bolus ordered and administered without difficulty. Patient resting in bed watching television. Assessment/Interventions as documented.
[2024-08-18 23:14] LABS: Magnesium 2.4 mg/dl (1.6-2.3)
[2024-08-19] VITALS (22 sets, daily range): BP systolic 98–130; BP diastolic 64–78; PULSE 68; O2SAT 91–93; BMI 23.5
[2024-08-19] MEDS: DILAUDID 0.25 MG IV ×2 (00:25→03:53)
--- NOTE | 2024-08-19 00:30 | PTCARENOTE ---
C.O. 4.97 C.I. 2.41 SVR 1126 PAP / (18) CVP 9. Patient given IV Dilaudid 0.25mg for pain management. 100% A-Paced. Heart rate 70. Cardene gtt 2.5 mg/hr (12.5 ml/hr). Assessment/Interventions as documented.
--- NOTE | 2024-08-19 00:56 | W.PN.CT ---
Today's Communication / Plan
-
-pod #1
-kept sbp 90-110 overnight per AT
-had 7 beat NSVT - lytes ok, gave Amio bolus only
-junctional postop - holding BB and po Amio. Paced AAI @ 70 overnight. Rhythm this am: ? a-fib vs junctional
-CI 2.94, CO 6.06. Drips: insulin, Cardene 2.5
-CT outputs: 2 meds 165/405 in 12/24 hrs
-deline
-d/c insulin
-d/c Garcia
-monitor for DTs
-encourage IS, OOB
Assessment / Plan
-
- s/p Radical Mitral valve repair [40 mm Isaacs physio flex annuloplasty band]; surgical Aortic valve replacement [29 mm prosthesis]; Left atrial appendage exclusion [40 mm device] by Dr. Heck
on 08/18/24, pod #1
- intraop GIANNI: LVEF preop was 60% with no significant wma. Following surgery, his EF remained the same at 60% with no new regional wall motion abnormalities. He was in a bigeminy rhythm after the surgery and so there was some dyskinesis. There was
no residual mitral valve insufficiency, no systolic anterior motion the leaflets, and a mean gradient of 1 across the valve. There was no paravalvular leak of the aortic valve bioprosthesis and a mean gradient of 3 across that valve. His left
atrial appendage was verified to be free of any thrombus or debris preoperatively and found to be totally occlusive postoperatively.
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
- Moderately severe aortic valve insufficiency secondary to calcium and prolapsing of the noncoronary cusp with involvement of the commissure
- Family history for thoracic aortic aneurysms requiring intervention
- Family history for mitral valve insufficiency requiring intervention
- Hypertension
- First-degree AV block
- Former history of smoking
- Mild pectus excavatum
- Former smoker, quit 2014
- EtOH (25-50 beers/week)
- Acute postop blood loss anemia
- Acute postop thrombocytopenia/hypercoagulopathy - s/p 2 FFPs, 2 platelets, DDAVP, Protamine
- Acute postop atelectasis
- Acute postop hypovolemia with subsequent hypervolemia
Discussed patient care with: Nursing and Care Team
Subjective
-
Date of Service: August 19, 2024
Objective Data
-
PT 19.0 Sec (11.4-14.6) H 08/18/24 16:30
INR 1.54 08/18/24 16:30
APTT 33.7 Sec (23.4-35.0) 08/18/24 16:30
Vital Signs
Vital Signs
Temp Pulse Resp BP Pulse Ox
98.7 F 70 20 102/64 94
08/19/24 00:00 08/19/24 00:30 08/19/24 00:30 08/19/24 00:03 08/19/24 00:30
CT Intake/Output/Weight
08/18/24 08/18/24 08/19/24
06:59 18:59 06:59
Intake Total 1369.1 / 0.3 681.2 / 2049.3
Output Total 360 / 815 455 / 815
Balance 1009.1 / 1235.3 226.2 / 1235.3
SaO2: 94
Physical Exam
-
General: Awake and AOx3
Cardiovascular: Regular rate & rhythm, No Murmurs and No Rub
Respiratory: Decreased Breath Sounds
Sternum: Stable
Incision: Clean, Dry and Intact
Extremities: No Edema (1+ DPs b/l)
Abdomen: soft, nontnder, nondistended, +decreased bowel sounds
Data Reviewed
-
Lab Results: Results Reviewed
Medications: Active Meds Reviewed
Chest X-Ray: Report Reviewed and Image Reviewed
ECG: Report Reviewed and Image Reviewed
[2024-08-19 01:04] LABS: Glucose - Point of Care 135 mg/dl (70-99)
[2024-08-19] MEDS: COMPAZINE 10 MG IV (02:30)
[2024-08-19] MEDS: DILAUDID 0.5 MG IV ×2 (02:48→05:54)
--- NOTE | 2024-08-19 03:00 | PTCARENOTE ---
Patient with c/o nausea. Small amount of emesis - Thick whitish, yellow secretions. Mouth care provided. Compazine 10mg IV ordered and administered. Patient with c/o 10/10 sternal pain. IV Dilaudid 0.5mg administered with positive relief
provided. Patient resting in bed dozing intermittently. Assessment/Interventions as documented.
[2024-08-19 03:06] LABS: Glucose - Point of Care 111 mg/dl (70-99)
[2024-08-19 03:39] LABS: Hemoglobin 9.7 g/dL (13.0-18.0); Mean Corp Hgb Conc. 34.6 g/dL (33.0-37.0); Mean Corpuscular Volume 95.2 fL (80.0-94.0); Mean Platelet Volume 9.2 fL (7.4-10.4); Platelet Count 106 10^3/uL (130-400); Red Blood Cell Count 2.94 10^6/uL (4.70-6.10); Red Cell Dist. Width 12.1 % (11.5-14.5); White Blood Cell Count 8.4 10^3/uL (4.8-10.8)
[2024-08-19] MEDS: ROXICODONE 5 MG PO ×2 (03:54→23:03)
[2024-08-19 04:01] LABS: Blood Urea Nitrogen 17 mg/dl (9-20); Carbon Dioxide 24 mmol/L (22-30); Chloride 114 mmol/L (98-107); Estimated Creatinine Clearance > 125 ml/min; Glucose 114 mg/dl (70-99); Magnesium 2.2 mg/dl (1.6-2.3); Potassium 3.9 mmol/L (3.5-5.1); Sodium 143 mmol/L (135-145); eGFR > 60.00
--- NOTE | 2024-08-19 04:45 | PTCARENOTE ---
AM lab work collected and sent. EKG completed - PA placed Epicardial Pacemaker on hold for EKG. C.O. 4.39 C.I. 2.13 SVR 1075 PAP 29/10 (18) CVP 12. AAI 70/11/0.4. Chest tube dressing changed. V-Wire site slight oozing. Patient given IV
Dilaudid 0.25mg and Roxicodone 5mg PO for pain management. Assessment/Interventions as documented.
[2024-08-19 05:20] LABS: Glucose - Point of Care 115 mg/dl (70-99)
[2024-08-19] MEDS: KCL 20 MEQ PO (05:43)
[2024-08-19] MEDS: ANCEF 5 IV ×2 (05:43→13:36)
[2024-08-19] MEDS: TYLENOL 1000 MG PO ×3 (05:44→23:03)
[2024-08-19 06:16] LABS: Glucose - Point of Care 108 mg/dl (70-99)
[2024-08-19 06:53] LABS: Glucose - Point of Care 96 mg/dl (70-99)
--- NOTE | 2024-08-19 06:56 | W.PN.CD ---
Today's Communication / Plan
-
Incentive spirometry.
Chest tube/PTX management per CTS.
Pain control.
Furosemide 40 mg IV x1.
Serial coags/CBC's.
Impression / Plan
-
Impression/Plan: 58 y/o with HTN, HLD, tobacco abuse history, severe myxomatous mitral regurgitation and moderate/severe aortic valve insufficiency admitted for AVR/MVr.
#Severe myxomatous mitral valve regurgitation
-Chronic, progressive.
-S/P radical MVr (quadrangular resection of P3 and sliding plasty of P2 onto P3, 6 pairs of Mosca-Jerry cords placed with 4 going to the posterior leaflet and 2 going to the anterior leaflet at A2, #40 Isaacs physio flex annuloplasty band [serial
#[id number]], debridement of mitral annular calcification) with Dr. Heck, 08/18/2024.
-Routine post operative management.
-Encourage incentive spirometry.
-Ambulate when appropriate.
-Serial CBC's, PT/INR.
-Furosemide 40 mg IV x1 and monitor.
#Moderate/severe aortic valve insufficiency
-Chronic, progressive.
-S/P AVR (#29 Isaacs Inspiris Resilia aortic valve bioprosthesis, serial #[id number]) with Dr. Heck, 08/18/2024.
-Post operative management as above.
#HTN
-Chronic.
-Adjust anti-hypertensive medications when hemodynamically stable.
#Coagulopathy
-Acute, post operative.
-S/P LAAE (#40 left atrial appendage clip, serial #[id number]).
-Patient has received platelets x2, FFP x2, DDAVP.
-Plts have stabilized at 106k.
-INR 1.54.
-Serial coagulation studies and CBC's.
#PTX
-Acute, post operative.
-Chest tube management per CTS.
Critical Care Time = 40 minutes.
Subjective/Interval History:
Extubated yesterday.
Weight up 3.4 kg from yesterday.
Patient is 100% A-paced.
CI up to 3.16 L/min/m2.
Norepinephrine off.
SaO2 = 93% on 4LNC.
Patient has required hydromorphone/roxicodone for pain control.
Some nausea with small emesis overnight.
CXR shows low lung volumes and a small, right apical PTX.
DATA:
Cardiac Catheterization, 07/13/2024:
CONCLUSIONS:
1. Left dominant circulation with no coronary artery disease.
2. Mildly elevated filling pressures (LVEDP = 14 mmHg, PCWP = 15 mmHg at 82.6 kg).
3. Severe mitral valve regurgitation and aortic valve insufficiency by echocardiography.
Transesophageal echocardiography, 07/13/2024:
CONCLUSIONS
Mildly dilated LV with normal systolic function and no regional wall motion
abnormalities.
LVEF is 60-65% by visual estimation.
Normal RV size and function.
Myxomatous mitral valve disease with flail P3 segment resulting in severe
eccentric mitral regurgitation that is anteriorly directed.
Trileaflet aortic valve with likely moderate aortic insufficiency no
significant stenosis.
Compared to transthoracic echo from June 30, 2024, etiology of severe MR is
better appreciated as described above.
CTA Chest, 08/02/2024:
IMPRESSION:
1. Mild aneurysmal dilation of the ascending thoracic aorta, measuring 4 cm in greatest orthogonal dimension.
2. Mild calcification of the mitral and aortic valves. Mild coronary arterial calcification.
3. Bilateral lung nodules, measuring up to 4 mm in diameter. As per Fleischner Society recommendations, no further CT follow-up is required unless the patient is high risk for lung carcinoma, in which case a follow-up chest CT should be considered
in approximately 12 months.
Surgery:
Procedure(s) Performed:
1. Standard sternotomy with aortic and bicaval cannulation
2. Surgical aortic valve replacement [29 mm prosthesis]
3. Radical mitral valve repair [quadrangular resection of P3 and sliding plasty of P2 onto P3, 6 pairs of Mosca-Jerry cords placed with 4 going to the posterior leaflet and 2 going to the anterior leaflet at A2, 40 mm band annuloplasty, debridement of
mitral annular calcification]
4. Left atrial appendage exclusion [40 mm device]
5. Placement of temporary atrial and ventricular pacing wires
6. Transesophageal echocardiography
Physical Exam
Vital Signs/Labs
Vital Signs
Temp Pulse Resp BP Pulse Ox
37.4 C 70 16 107/64 93
08/19/24 06:05 08/19/24 06:05 08/19/24 06:05 08/19/24 06:05 08/19/24 06:05
08/17/24 08/18/24 08/19/24
11:59 11:59 11:59
Actual Weight 79.6 kg 83 kg
08/19/24 03:24
08/19/24 03:24
PT 19.0 Sec (11.4-14.6) H 08/18/24 16:30
INR 1.54 08/18/24 16:30
APTT 33.7 Sec (23.4-35.0) 08/18/24 16:30
Magnesium 2.2 mg/dl (1.6-2.3) 08/19/24 03:24
Physical Exam
Constitutional: No acute distress and Comfortable
EENT: Anicteric and Moist mucous membranes
Cardiovascular: Rhythm & rate is regular, Pedal edema is absent, JVD pressure is normal, S1S2 is normal and Murmur/rub/gallop absent
Respiratory: Other (Decreased throughout.)
GI: Soft, Distention absent, Flat, Non tender and Normal bowel sounds
Neuro/Psych: AO x 3
Data Reviewed
-
Date of Service: August 19, 2024
Medical Decision Making: Reviewed Test Results, Independent Historian Assessment, Test Interpretation and Review of Case with other Provider
EKG: Tracing Personally Visualized and interpreted and Report Reviewed by me
Echo: Report Reviewed by me
X-Ray/CT/US/MRI/NUC/PET: Image Personally Visualized and interpreted and Report Reviewed by me
Medical Tests (PFT, Pathology etc): Report Reviewed by me
Labs: Labs Reviewed by me
Old Records: Reviewed
--- NOTE | 2024-08-19 07:21 | W.PN.ANS.POP ---
Anesthesia Post Operative
- Anesthesia Post Op Note
Vital Signs Stable-See Nursing Note: Yes
Airway Patent: Yes
Adequate Pain Control: Yes
Change in Mental Status: No
Current Postoperative Nausea & Vomiting: No
Anesthesia Complications: No
General Anesthetic Recall: No
Unplanned Admission: No
Post Op Hydration Adequate: Yes
[2024-08-19] MEDS: TORADOL 15 MG IV ×3 (07:59→20:42)
[2024-08-19 08:05] LABS: Glucose - Point of Care 100 mg/dl (70-99)
--- NOTE | 2024-08-19 08:52 | W.PN.INTV ---
Today's Communication / Plan
Recommendations
Tolerated extubation
Gentle diuresis
Discontinue insulin
deline
Likely transfer to telemetry-call pulmonary if respiratory issues arise
Assessment
-
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
Myxomatous mitral valve/aortic stenosis
Status post MVR/AVR-Dr. Heck-08/18/2024
Mild hyperglycemia
Pulmonary nodules-incidentally noted on CT angiogram 08/02/24
Conditions present prior to admission:
Hypertension.
Myxomatous mitral valve.
Aortic stenosis.
Former smoker quit 2014.
COPD-FEV1 2.96-73%
Anxiety.
Hyperglycemia.
Plan
Tolerated extubation
Wean FiO2
Encourage incentive spirometry
Increase activity
Aspiration precautions
Pulmonary artery catheter and arterial line will be removed
Pressors have been weaned
Continue to monitor chest tube output
Follow hemoglobin
Continue to follow platelet count and coags
Transfuse blood product as needed
CT surgery following chest tubes as well
Follow blood sugar
Insulin supplementation continues as needed
Monitor closely for alcohol withdrawal-last drink supposedly on Thursday
Thiamine and folate if suspected
Ativan as needed
Early nutrition
Early mobilization
DVT prophylaxis
Outpatient pulmonary follow-up recommended-PFTs, yearly low-dose lung cancer screening CT-needs follow-up of pulmonary nodules as well
Patient will be transferred to telemetry phase-call pulmonary if respiratory issues arise
Reviewed the patient's pertinent medical records including radiographs, microbiology, laboratory evaluations, and discussion with primary team, and critical care nursing.
Diagnostic data:
CT angiogram 08/02/24 mild aneurysmal dilation ascending thoracic aorta measuring 4 cm, bilateral lung nodules measuring 4 mm- - 4 mm in the right middle lobe and 4 mm left upper lobe
Echocardiogram 06/30/2024-EF 65%, severe mitral regurgitation, moderate to severe aortic regurgitation
Cardiac catheterization 07/13/2024-mildly elevated filling pressures, severe mitral valve regurgitation and aortic valve insufficiency, no coronary artery disease
Spirometry 08/07/24-FEV1 2.9-73%, FVC 5-95%
Subjective Dataa
Subjective Data
Date of Service:
Date of Service: August 19, 2024
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
Subjective:
tolerated extubation, no complaints of shortness of breath, abdominal pain, pain controlled
Review of Systems
General: Other ( per HPI)
Objective Data
Data Reviewed
Vital Signs / I&O / Oxygen:
Vital Signs
Temp Pulse Resp BP Pulse Ox
99.6 F 66 20 116/74 93
08/19/24 08:00 08/19/24 07:55 08/19/24 08:00 08/19/24 07:22 08/19/24 08:00
Intake and Output
08/18/24 08/19/24 08/20/24
06:59 06:59 06:59
Intake Total 2572.8 / 2607.3 55.3 / 55.3
Output Total 1275 / 1345 135 / 135
Balance 1297.8 / 1262.3 -79.7 / -79.7
SaO2 [CPAP] 97
SaO2 [SIMV] 98
SaO2 93
Nasal Cannula flow liters per 4
minute
Physical Exam
General: Respiratory Distress (n) and Comfortable
HEENT: Normocephalic, Anicteric and Moist Mucous Membranes
Cardiovascular: Regular Rhythm
Respiratory: Crackles (n), Rhonchi (n), Non-Labored Respirations, Accessory Resp Muscle Use (nn) and Stridor (n)
GI: Soft, Non Distended and Non Tender
Neurology: Awake, Alert and No Motor Deficits
Skin: Warm, Good Color, Cyanosis and Jaundice (n)
Labs/Micro/Reports
Lab Data
08/19/24 03:24
08/19/24 03:24
Laboratory Results
08/18/24 08/18/24
16:30 22:40
PT 19.0 H
INR 1.54
APTT 33.7
pH 7.36 7.39
pCO2 38 39
pO2 237 H 97
HCO3 21.5 23.6
O2 Delivery Level
[2024-08-19] MEDS: NEURONTIN 100 MG PO ×3 (09:18→23:03)
[2024-08-19] MEDS: SENOKOT-S 1 TABLET PO ×2 (09:18→20:43)
[2024-08-19] MEDS: PROTONIX 40 MG PO (09:18)
[2024-08-19] MEDS: LOW STRENGTH ASPIRIN 81 MG PO (09:19)
[2024-08-19] MEDS: LIDOCAINE 4% PATCH 1 PATCH TOPICAL (09:21)
[2024-08-19] MEDS: BACTROBAN 2% OINTMENT 1 APPLIC NASAL ×2 (09:21→20:42)
[2024-08-19] MEDS: MAGNESIUM OXIDE 500 MG PO ×2 (09:21→20:42)
[2024-08-19] MEDS: LASIX 40 MG IV (09:26)
[2024-08-19 09:34] LABS: Glucose - Point of Care 128 mg/dl (70-99)
--- NOTE | 2024-08-19 09:50 | PTCARENOTE ---
Received pt from transition nurse RN at 0700; pt AAOx3 and resting comfortably in bed; Junctional on monitor and VSS; Epicardial A/V wires set to back up AAI 50/11/0.4 and no pacing noted; RIJ Cordgabino, [place] floated to 45, Left A-line and PIV x1 patent;
all lines leveled and zeroed; Insulin infusing per Glycemic protocol see flow sheet for details; Lungs diminished; IS to 1000; CT x2 to -20 wall suction no air leak and no crepitus noted; positive bowel sounds; Garcia catheter draining yellow urine;
palpable pulses throughout; no edema noted; all surgical sites C/D/I; see nursing documentation for further details.
0900- [place], A-line and Garcia catheter removed per CT SPLICER APPRENTICE order. Cardiac rehab at bedside and pt ambulated hallways with RN and rehab. Family at bedside and updated; pt resting comfortably in chair.
[2024-08-19 11:13] LABS: Glucose - Point of Care 142 mg/dl (70-99)
--- NOTE | 2024-08-19 11:59 | CM ---
CM following for DC planning needs.
Pt. is POD#[address] Surg[address]
Pt. reports that he feels well, though last night was a 'rough' night.
Encouragement provided.
DC plan is anticipated for home w/ sig. other and CT Transitional Care RN.
CM will cont. to follow for support and DC planning needs.
[2024-08-19 12:59] LABS: Glucose - Point of Care 66 mg/dl (70-99)
[2024-08-19 13:15] LABS: Glucose - Point of Care 71 mg/dl (70-99)
--- NOTE | 2024-08-19 13:16 | GLUCOSE ---
SITUATION:
On insulin gtt @ 3 units/hr, critical care target glucose protocol followed.
BACKGROUND:
recent cardiac surgery, not a diabetic
ASSESSMENT:
BS 66. Insulin gtt stopped. Pt AO, asymptomatic, cholesterol lowering diet recently ordered, 4oz OJ given, 15 min recheck 71. Team notified.
RECOMMENDATION:
Discussed w/ team, instructed to stop insulin gtt, will recheck in 2 hrs.
[2024-08-19] MEDS: FERRLECIT 110 MG IV (13:37)
--- NOTE | 2024-08-19 14:13 | PTCARENOTE ---
Assumed care of pt @ 1130. Sitting comfortable OOB in chair. VSS. Weaned to 2L NC sating 96%. Full assessment as documented.
[2024-08-19] MEDS: NSS IV (14:45)
[2024-08-19 14:52] LABS: Glucose - Point of Care 144 mg/dl (70-99)
--- NOTE | 2024-08-19 15:16 | PTCARENOTE ---
Pt due to void, bladder scanned for 410. Assisted pt to stand and able to void 390 ml yellow urine.
--- NOTE | 2024-08-19 18:00 | PTCARENOTE ---
Addendum entered by Yemi Olmos RN 08/19/24 23:21:
R IJ cordis patent and intact, NS infusing at 10ml/hr.
Original Note:
Assumed care of patient at 1800. Patient in chair, no complaints offered, neurologically intact, remains on telemetry in Junctional rhythm with epicardial pacing wires in place, setting confirmed. CT sites x2, with dressing CDI, tubing stripped and
output documented. On 2L 95%. Mouth hygiene provided. VSS, call euceda within reach, report given to oncoming RN.
--- NOTE | 2024-08-19 21:15 | PTCARENOTE ---
Patient received OOB in chair watching television and dozing intermittently. Patient assisted to bed. Patient A+A+Ox3. No neurological deficits noted. Room air. SpO2 90%. 2L O2 HS. Two Mediastinal chest tubes - Intact and patent - 20 ml red
drainage - No air leak. Dressing intact. A-Paced. PA adjusted Epicardial Temporary Pacemaker - Increased rate. AAI 70/11/0.4 Patient with no c/o chest pain, pressure or discomfort. Normoactive bowel sounds. No BM. No c/o nausea. No
vomiting. Voiding. Sternal incision intact - Surgical adhesive - Open to air. Positive, palpable pulses. Right I.J. Cordis. Assessment as documented.
[2024-08-19 22:58] LABS: Glucose - Point of Care 122 mg/dl (70-99)
[2024-08-20] VITALS (12 sets, daily range): BP systolic 105–132; BP diastolic 61–75; PULSE 78; O2SAT 98; BMI 24.0
--- NOTE | 2024-08-20 | PTCARENOTE ---
Patient sleeping without difficulty. No further changes from previous assessment.
[2024-08-20] MEDS: TORADOL 15 MG IV (03:20)
--- NOTE | 2024-08-20 03:33 | W.PN.CT ---
Addendum entered and electronically signed by Diaz Wiley MD 08/20/24 09:16:
I saw and examined the patient.
The PA's note was reviewed and I agree with the note.
Comment:
POD #2 s/p AVR, MVRp, ELAA
Continued junctional rhythm - rate in 50s-70s; A-paced currently - continue to hold BB/amio
Maintain CTs today, likely removal tomorrow
Monitor for DTs (25-50 beers/week)
OOB/IS/ambulate
Original Note:
Today's Communication / Plan
-
-pod #2
-no issues overnight
-a-paced @ 70 overnight. Intrinsic rhythm is junctional high 50s to 70s
-follow rhythm. Holding BB and Amio
-diuresed with 40 iv Lasix on 08/19 (Uo 520)
-CT outputputs: 2 meds 80/305 in 12/24 hrs
-monitor for DTs
-encourage IS, OOB
-
Assessment / Plan
-
- s/p Radical Mitral valve repair [40 mm Isaacs physio flex annuloplasty band]; surgical Aortic valve replacement [29 mm prosthesis]; Left atrial appendage exclusion [40 mm device] by Dr. Heck
on 08/18/24, pod #2
- intraop GIANNI: LVEF preop was 60% with no significant wma. Following surgery, his EF remained the same at 60% with no new regional wall motion abnormalities. He was in a bigeminy rhythm after the surgery and so there was some dyskinesis. There was
no residual mitral valve insufficiency, no systolic anterior motion the leaflets, and a mean gradient of 1 across the valve. There was no paravalvular leak of the aortic valve bioprosthesis and a mean gradient of 3 across that valve. His left
atrial appendage was verified to be free of any thrombus or debris preoperatively and found to be totally occlusive postoperatively.
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
- Moderately severe aortic valve insufficiency secondary to calcium and prolapsing of the noncoronary cusp with involvement of the commissure
- Family history for thoracic aortic aneurysms requiring intervention
- Family history for mitral valve insufficiency requiring intervention
- Hypertension
- First-degree AV block
- Former history of smoking
- Mild pectus excavatum
- Former smoker, quit 2014
- EtOH (25-50 beers/week)
- Acute postop blood loss anemia
- Acute postop thrombocytopenia/hypercoagulopathy - s/p 2 FFPs, 2 platelets, DDAVP, Protamine
- Acute postop atelectasis
- Acute postop hypovolemia with subsequent hypervolemia
Discussed patient care with: Nursing and Care Team
Subjective
-
Date of Service: August 20, 2024
Objective Data
-
PT 19.0 Sec (11.4-14.6) H 08/18/24 16:30
INR 1.54 08/18/24 16:30
APTT 33.7 Sec (23.4-35.0) 08/18/24 16:30
Vital Signs
Vital Signs
Temp Pulse Resp BP Pulse Ox
99.0 F 70 16 111/67 93
08/19/24 22:00 08/20/24 03:00 08/20/24 00:00 08/20/24 02:00 08/20/24 03:00
CT Intake/Output/Weight
08/19/24 08/19/24 08/20/24
06:59 18:59 06:59
Intake Total 1203.7 / 2607.3 1473.2 / 1783.2 310 / 1783.2
Output Total 915 / 1345 745 / 785 40 / 785
Balance 288.7 / 1262.3 728.2 / 998.2 270 / 998.2
SaO2: 93
Physical Exam
-
General: Awake and AOx3
Cardiovascular: Regular rate & rhythm, No Murmurs and No Rub
Respiratory: Decreased Breath Sounds
Sternum: Stable
Incision: Clean, Dry and Intact
Abdomen: soft, nontnder, nondistended, +decreased bowel sounds
Extremities: No Edema (1+ DPs b/l)
Data Reviewed
-
Lab Results: Results Reviewed
Medications: Active Meds Reviewed
Chest X-Ray: Report Reviewed and Image Reviewed
ECG: Report Reviewed and Image Reviewed
[2024-08-20 04:01] LABS: Hematocrit 25.7 % (39.0-52.0); Hemoglobin 8.7 g/dL (13.0-18.0); Mean Corp Hgb Conc. 33.9 g/dL (33.0-37.0); Mean Corpuscular Hgb 32.8 pg (27.0-31.0); Red Blood Cell Count 2.65 10^6/uL (4.70-6.10); Red Cell Dist. Width 12.3 % (11.5-14.5)
[2024-08-20 04:23] LABS: Blood Urea Nitrogen 22 mg/dl (9-20); Calcium 8.2 mg/dl (8.4-10.2); Carbon Dioxide 26 mmol/L (22-30); Chloride 105 mmol/L (98-107); Estimated Creatinine Clearance 120 ml/min; Glucose 111 mg/dl (70-99); Magnesium 2.3 mg/dl (1.6-2.3); Potassium 4.2 mmol/L (3.5-5.1); Sodium 136 mmol/L (135-145); eGFR > 60.00
--- NOTE | 2024-08-20 05:00 | PTCARENOTE ---
Patient A+A+Ox3. No neurological deficits noted. AM lab work collected and sent. EKG completed - PA paused pacemaker - Junctional Rhythm. No c/o chest pain, pressure or discomfort. Patient given CHG bath and linens changed. Voided 400 ml trisha
urine. OOB to chair. Standing scale weight 84.8 kg. Assessment/Interventions as documented.
[2024-08-20] MEDS: TYLENOL PO (05:54)
[2024-08-20 06:20] LABS: Mean Platelet Volume 9.4 fL (7.4-10.4); Platelet Count 83 10^3/uL (130-400)
--- NOTE | 2024-08-20 07:52 | PTCARENOTE ---
Pt received from outgoing RN, POD 2 sp AVR, MV repair, PFO closure. AAox4, oob in chair, MSCT x2, rt IJ Cordis, VSS, av wires, APaced 72//0.4, RA, pain controlled, IS 1000ml.
[2024-08-20] MEDS: BACTROBAN 2% OINTMENT 1 APPLIC NASAL ×2 (08:31→19:50)
[2024-08-20] MEDS: NEURONTIN 100 MG PO ×3 (08:32→21:30)
[2024-08-20] MEDS: MAGNESIUM OXIDE 500 MG PO ×2 (08:32→19:51)
[2024-08-20] MEDS: LIDOCAINE 4% PATCH TOPICAL (08:32)
[2024-08-20] MEDS: PROTONIX 40 MG PO (08:32)
[2024-08-20] MEDS: SENOKOT-S 1 TABLET PO ×2 (08:32→19:50)
[2024-08-20] MEDS: LOW STRENGTH ASPIRIN 81 MG PO (08:33)
--- NOTE | 2024-08-20 08:52 | PTCARENOTE ---
inappropriate Apacing 72/11/0.4, decreased rate on TPM pt underlying rhythm junctional tach 70-78, increased TPM rate 80/6/0.4, pt appropriately apaced.
--- NOTE | 2024-08-20 11:43 | PTCARENOTE ---
pt reassessment unchanged from previous, decreased pacing rate to backup 40/6/0.4, pt is in accelerate junctional rhythm rate 80's per Dr[address]Thomas muller for pt the remain in this rhythm. CT to remain in place till tomorrow, continue to ambulate with
nursing staff.
[2024-08-20] MEDS: ROXICODONE 5 MG PO ×2 (13:17→19:50)
[2024-08-20] MEDS: TYLENOL 1000 MG PO ×2 (13:17→21:30)
[2024-08-20] MEDS: FERRLECIT 110 MG IV (13:17)
[2024-08-20] MEDS: NSS 500 IV (16:08)
--- NOTE | 2024-08-20 20:30 | PTCARENOTE ---
Patient received OOB in chair. Patient A+A+Ox3. No neurological deficits noted. No c/o visual disturbances. No c/o double vision. Patient assisted to bathroom with minimal assistance. Steady gait. No c/o headache, dizziness or
lightheadedness. Patient voided 450 ml clear yellow urine. Room air. SpO2 94%. Two chest tubes - Mediastinal x2 - intact and patent - 40 ml red drainage - No air leak. Chest tube dressing intact. Junctional Rhythm. Heart rate 60's. Blood
pressure 132/75 (90). AV Wires. V-Wire off. AAI 40/6/0.4 Patient with no c/o chest pain, pressure or discomfort. Normoactive bowel sounds. No BM. Positive flatus. No c/o nausea. No vomiting. Sternal incision intact. Positive, palpable
pulses. Roxicodone 5mg PO for c/o 5/10 sternal pain - Positive relief provided. Right I.J. Cordis. Oral temperature 100F - No c/o fever/chills/rigors. Patient resting in bed watching television. Assessment as documented.
--- NOTE | 2024-08-20 22:30 | PTCARENOTE ---
Patient resting in bed watching television. Oral temperature 99.4 F. Patient's chest tube dressing changed. CHG wipes. Patient voided 500 ml clear yellow urine. No c/o pain or discomfort. Assessment as documented.
[2024-08-21] VITALS (17 sets, daily range): BP systolic 102–143; BP diastolic 61–93; PULSE 83; O2SAT 95; BMI 23.8
[2024-08-21] MEDS: TYLENOL 1000 MG PO ×3 (04:42→21:08)
[2024-08-21] MEDS: ROXICODONE 5 MG PO ×3 (04:42→21:08)
--- NOTE | 2024-08-21 05:15 | PTCARENOTE ---
Patient resting in bed. Patient A+A+Ox3. No neurological deficits noted. No c/o visual disturbances. No c/o double vision. Oral temperature 98.0 F. AM lab work collected and sent. Portable CXR completed. Tylenol and Roxicodone for pain
management. Mediastinal chest tubes intact and patent - Small amount of red drainage. Voided 450 ml clear yellow urine. Accelerated Junctional Rhythm. Heart rate 60-70's. Assessment/Interventions as documented.
[2024-08-21 05:35] LABS: Hematocrit 25.2 % (39.0-52.0); Hemoglobin 8.8 g/dL (13.0-18.0); Mean Corp Hgb Conc. 34.9 g/dL (33.0-37.0); Mean Corpuscular Hgb 33.2 pg (27.0-31.0); Mean Corpuscular Volume 95.1 fL (80.0-94.0); Mean Platelet Volume 9.2 fL (7.4-10.4); Platelet Count 81 10^3/uL (130-400); Red Blood Cell Count 2.65 10^6/uL (4.70-6.10); Red Cell Dist. Width 11.9 % (11.5-14.5); White Blood Cell Count 7.4 10^3/uL (4.8-10.8)
[2024-08-21 05:42] LABS: Blood Urea Nitrogen 11 mg/dl (9-20); Calcium 8.2 mg/dl (8.4-10.2); Carbon Dioxide 26 mmol/L (22-30); Chloride 105 mmol/L (98-107); Estimated Creatinine Clearance > 125 ml/min; Glucose 106 mg/dl (70-99); Magnesium 2.2 mg/dl (1.6-2.3); Potassium 3.9 mmol/L (3.5-5.1); Sodium 138 mmol/L (135-145); eGFR > 60.00
--- NOTE | 2024-08-21 06:05 | W.PN.CT ---
Addendum entered and electronically signed by Diaz Wiley MD 08/21/24 09:14:
I saw and examined the patient.
The PA's note was reviewed and I agree with the note.
Comment:
POD#3 s/p MVRp, AVR, ELAA
Remains in junctional in 60s-70s - pacing at backup - no pacing has been required
Continue to hold amiodarone & BB
D/C CTs today
Maintain cordis
OOB/IS/ambulate
No s/s of DTs - continue to monitor
Original Note:
Today's Communication / Plan
-
-pod #3
-no issues overnight
-Intrinsic rhythm is junctional high 60s to 70s, pacer at AAI 60 as backup
-follow rhythm. Holding BB and Amio, asymptomatic, may need monitor for discharge
-gentle diuresis
-CT outputputs: 2 meds 60/160 in 12/24 hrs, may discontinue today
-monitor for DTs
-encourage IS, OOB
Assessment / Plan
-
- s/p Radical Mitral valve repair [40 mm Isaacs physio flex annuloplasty band]; surgical Aortic valve replacement [29 mm prosthesis]; Left atrial appendage exclusion [40 mm device] by Dr. Heck
on 08/18/24, pod #3
- intraop GIANNI: LVEF preop was 60% with no significant wma. Following surgery, his EF remained the same at 60% with no new regional wall motion abnormalities. He was in a bigeminy rhythm after the surgery and so there was some dyskinesis. There was
no residual mitral valve insufficiency, no systolic anterior motion the leaflets, and a mean gradient of 1 across the valve. There was no paravalvular leak of the aortic valve bioprosthesis and a mean gradient of 3 across that valve. His left
atrial appendage was verified to be free of any thrombus or debris preoperatively and found to be totally occlusive postoperatively.
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
- Moderately severe aortic valve insufficiency secondary to calcium and prolapsing of the noncoronary cusp with involvement of the commissure
- Family history for thoracic aortic aneurysms requiring intervention
- Family history for mitral valve insufficiency requiring intervention
- Hypertension
- First-degree AV block
- Former history of smoking
- Mild pectus excavatum
- Former smoker, quit 2014
- EtOH (25-50 beers/week)
- Acute postop blood loss anemia
- Acute postop thrombocytopenia/hypercoagulopathy - s/p 2 FFPs, 2 platelets, DDAVP, Protamine
- Acute postop atelectasis
- Acute postop hypovolemia with subsequent hypervolemia
Subjective
Procedure
s/p Radical Mitral valve repair [40 mm Isaacs physio flex annuloplasty band]; surgical Aortic valve replacement [29 mm prosthesis]; Left atrial appendage exclusion [40 mm device] by Dr. Heck
on 08/18/24
-
Date of Service: August 21, 2024
Objective Data
-
Lab Results
08/21/24 04:59
08/21/24 04:59
PT 19.0 Sec (11.4-14.6) H 08/18/24 16:30
INR 1.54 08/18/24 16:30
APTT 33.7 Sec (23.4-35.0) 08/18/24 16:30
Vital Signs
Vital Signs
Temp Pulse Resp BP Pulse Ox
98.0 F 61 16 141/75 98
08/21/24 04:50 08/21/24 05:00 08/21/24 04:50 08/21/24 04:50 08/21/24 04:50
CT Intake/Output/Weight
08/20/24 08/20/24 08/21/24
06:59 18:59 06:59
Intake Total 360 / 1833.2 720 / 1310 590 / 1310
Output Total 480 / 1225 900 / 3480 2580 / 3480
Balance -120 / 608.2 -180 / -2169 -1989 /
SaO2: 98
Physical Exam
-
General: AOx3
Cardiovascular: Regular rate & rhythm
Respiratory: Clear
Sternum: Stable
Incision: Clean, Dry and Intact
Extremities: No Edema
[2024-08-21] MEDS: SENOKOT-S 1 TABLET PO ×2 (08:52→19:35)
[2024-08-21] MEDS: PROTONIX 40 MG PO (08:52)
[2024-08-21] MEDS: NEURONTIN 100 MG PO ×3 (08:53→21:08)
[2024-08-21] MEDS: MAGNESIUM OXIDE 500 MG PO ×2 (08:53→19:35)
[2024-08-21] MEDS: KCL 20 MEQ PO (08:54)
[2024-08-21] MEDS: KLOR-CON 20 MEQ PO (08:54)
[2024-08-21] MEDS: BACTROBAN 2% OINTMENT 1 APPLIC NASAL ×2 (08:54→19:37)
[2024-08-21] MEDS: LIDOCAINE 4% PATCH 1 PATCH TOPICAL (08:55)
[2024-08-21] MEDS: BUMEX 1 MG IV (09:00)
--- NOTE | 2024-08-21 09:00 | PTCARENOTE ---
Patient converted to afib hr 120-150s, asymptomatic, sitting in chair. BP 102/82. Emily, CTPA at bedside. Converted back to accel junctional on own without intervention. Will continue to monitor.
--- NOTE | 2024-08-21 09:27 | PTCARENOTE ---
Received patient for 7a-7p shift. Pt AAOx3, without complaints, OOB in chair. VSS, Accelerated Junctional on satellite project site monitor. Patient denies pain at this time. Mediastinal CT to low wall suction, dressing c/d/i, serosanguineous drainage. AV wires
connected to pacer box, A settings hr 40/mA 6. Patient tolerating po intake, voiding without issues. RIJ cordis infusing without complications. Instructed patient to call for assistance prior to ambulation. Patient verbalized understanding. Will
continue to monitor.
--- NOTE | 2024-08-21 13:09 | PTCARENOTE ---
Pt reassessed, VSS, Junctional rhythm on electronic device monitor. A wire d/c at 1050 by RIMA Diaz. V wire remains connected to pacer box for backup, VVI 40/10. Vitals and CT drainage monitored per protocol. Med CT x 2 d/c at 1250 without issues. Patient
resting comfortably. Will continue to monitor.
[2024-08-21] MEDS: FERRLECIT 110 MG IV (15:07)
[2024-08-21] MEDS: CORDARONE 518 MG IV (15:08)
--- NOTE | 2024-08-21 16:07 | PTCARENOTE ---
1415- Patient converted to Aflutter 120-150s, asymptomatic. BP stable. Emily, CTPA at bedside, Dr. Quezada aware. EKG done, sent to Dr. Quezada via [employer] [employer]. Converting in and out of aflutter 120s and junctional in 70-80s. Orders to start Amio gtt.
Medications administered as ordered. Will continue to monitor.
--- NOTE | 2024-08-21 17:04 | W.PN.UPDATE ---
Update Note
Progress Note Update
Temporary epicardial atrial wires pulled at bedside without issues.
DC mediastinal chest tubes in 1 hour if outputs and blood pressures remain stable.
Keep the wires, plan to cut upon discharge
[2024-08-21] MEDS: NSS IV (17:37)
--- NOTE | 2024-08-21 20:00 | PTCARENOTE ---
Assumed care of patient at 1900. Patient found oob in chair at time of assessment. Patient is AOx4, follows commands appropriately, moves all extremities. Lung sounds are diminished in the bases, saO2 96% on RA. Heart sounds are audible, patient is
in accelerated junctional rhythm on the monitor, pulses are palpable throughout, no observable edema. Patient has temporary v wires present with settings of 40/10/2. Patient has active BS in all four quadrants, pending BM, patient is voiding using
urinal clear yellow. Patient has sternal incision approx with surg adhesive [employer] and ABD dressing over CT wounds that is CDI. Patient has R IJ cordis receiving KVO and amio@1. There is a L arm PIV present for intermittent infusion. Patient has no
complaints at this time. Call euceda within reach.
[2024-08-22] VITALS (9 sets, daily range): BP systolic 117–138; BP diastolic 71–87; PULSE 79; O2SAT 95–98; BMI 23.4
[2024-08-22] MEDS: FLEXERIL 5 MG PO (03:39)
[2024-08-22] MEDS: TYLENOL 650 MG PO (03:39)
[2024-08-22 04:23] LABS: Blood Urea Nitrogen 11 mg/dl (9-20); Calcium 8.5 mg/dl (8.4-10.2); Carbon Dioxide 30 mmol/L (22-30); Chloride 104 mmol/L (98-107); Estimated Creatinine Clearance > 125 ml/min; Glucose 115 mg/dl (70-99); Magnesium 2.2 mg/dl (1.6-2.3); Potassium 3.9 mmol/L (3.5-5.1); Sodium 137 mmol/L (135-145); eGFR > 60.00
[2024-08-22 04:29] LABS: Hematocrit 25.1 % (39.0-52.0); Hemoglobin 8.7 g/dL (13.0-18.0); Mean Corp Hgb Conc. 34.7 g/dL (33.0-37.0); Mean Corpuscular Hgb 32.8 pg (27.0-31.0); Mean Corpuscular Volume 94.7 fL (80.0-94.0); Mean Platelet Volume 9.2 fL (7.4-10.4); Platelet Count 105 10^3/uL (130-400); Red Blood Cell Count 2.65 10^6/uL (4.70-6.10); Red Cell Dist. Width 11.9 % (11.5-14.5); White Blood Cell Count 6.2 10^3/uL (4.8-10.8)
--- NOTE | 2024-08-22 04:32 | W.PN.CT ---
Today's Communication / Plan
-
-pod #4
-Had episode of SVT/AF yesterday, started on amio gtt (no bolus) with conversion to junctional rhythm
-Current rhythm is junctional high 60s to 70s, pacer at AAI 60 as backup
-follow rhythm. Holding BB, asymptomatic, may need monitor for discharge
-still has V wires, plan to cut on discharge
-gentle diuresis
-monitor for DTs
-encourage IS, OOB
-discharge planning
Assessment / Plan
-
- s/p Radical Mitral valve repair [40 mm Isaacs physio flex annuloplasty band]; surgical Aortic valve replacement [29 mm prosthesis]; Left atrial appendage exclusion [40 mm device] by Dr. eHck
on 08/18/24, pod #4
- intraop GIANNI: LVEF preop was 60% with no significant wma. Following surgery, his EF remained the same at 60% with no new regional wall motion abnormalities. He was in a bigeminy rhythm after the surgery and so there was some dyskinesis. There was
no residual mitral valve insufficiency, no systolic anterior motion the leaflets, and a mean gradient of 1 across the valve. There was no paravalvular leak of the aortic valve bioprosthesis and a mean gradient of 3 across that valve. His left
atrial appendage was verified to be free of any thrombus or debris preoperatively and found to be totally occlusive postoperatively.
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
- Moderately severe aortic valve insufficiency secondary to calcium and prolapsing of the noncoronary cusp with involvement of the commissure
- Family history for thoracic aortic aneurysms requiring intervention
- Family history for mitral valve insufficiency requiring intervention
- Hypertension
- First-degree AV block
- Former history of smoking
- Mild pectus excavatum
- Former smoker, quit 2014
- EtOH (25-50 beers/week)
- Acute postop blood loss anemia
- Acute postop thrombocytopenia/hypercoagulopathy - s/p 2 FFPs, 2 platelets, DDAVP, Protamine
- Acute postop atelectasis
- Acute postop hypovolemia with subsequent hypervolemia
Subjective
Procedure
s/p Radical Mitral valve repair [40 mm Isaacs physio flex annuloplasty band]; surgical Aortic valve replacement [29 mm prosthesis]; Left atrial appendage exclusion [40 mm device] by Dr. Heck
on 08/18/24
-
Date of Service: August 22, 2024
Objective Data
-
Lab Results
08/22/24 03:49
08/22/24 03:49
PT 19.0 Sec (11.4-14.6) H 08/18/24 16:30
INR 1.54 08/18/24 16:30
APTT 33.7 Sec (23.4-35.0) 08/18/24 16:30
Vital Signs
Vital Signs
Temp Pulse Resp BP Pulse Ox
98.7 F 61 20 130/80 97
08/22/24 03:00 08/22/24 04:00 08/22/24 03:00 08/22/24 03:42 08/22/24 03:42
CT Intake/Output/Weight
08/21/24 08/21/24 08/22/24
06:59 18:59 06:59
Intake Total 600 / 1320 260 / 260
Output Total 2580 / 3480 1440 / 2140 700 / 2140
Balance -1979 / -2160 -1180 / -1880 - / -188
SaO2: 97
Physical Exam
-
General: AOx3
Cardiovascular: Regular rate & rhythm
Respiratory: Clear
Sternum: Stable
Incision: Clean, Dry and Intact
Extremities: No Edema
[2024-08-22] MEDS: TYLENOL PO (06:51)
--- NOTE | 2024-08-22 07:01 | PTCARENOTE ---
Patient reassessed. VSS overnight. Remains in junctional rhythm slight run of HR <60 while patient coughing potential vagal response. Resolved spontaneously afterwards. Patient given tylenol for pain. AM labs obtained. Hygiene care provided. OOB to
chair without incident.
[2024-08-22] MEDS: SENOKOT-S 1 TABLET PO ×2 (07:35→20:17)
[2024-08-22] MEDS: MILK OF MAGNESIA 30 ML PO (07:35)
[2024-08-22] MEDS: MAGNESIUM OXIDE 500 MG PO ×2 (07:35→20:16)
[2024-08-22] MEDS: LOW STRENGTH ASPIRIN 81 MG PO (07:35)
[2024-08-22] MEDS: NEURONTIN 100 MG PO ×3 (07:35→22:21)
[2024-08-22] MEDS: PROTONIX 40 MG PO (07:35)
[2024-08-22] MEDS: LIDOCAINE 4% PATCH 1 PATCH TOPICAL (07:35)
[2024-08-22] MEDS: BACTROBAN 2% OINTMENT 1 APPLIC NASAL (07:37)
--- NOTE | 2024-08-22 10:49 | W.PN.CD ---
Today's Communication / Plan
-
trend tele
Impression / Plan
-
Impression/Plan: 58 y/o with HTN, HLD, tobacco abuse history, severe myxomatous mitral regurgitation and moderate/severe aortic valve insufficiency admitted for AVR/MVr.
#Severe myxomatous mitral valve regurgitation
-s/p radical MVr (quadrangular resection of P3 and sliding plasty of P2 onto P3, 6 pairs of [place]-Jerry cords placed with 4 going to the posterior leaflet and 2 going to the anterior leaflet at A2, #40 Isaacs physio flex annuloplasty band [serial
#[id number]], debridement of mitral annular calcification) with Dr. Heck, 08/18/2024.
-GIANNI: EF 60-65%
-cont ASA 81mg daily
#Moderate/severe aortic valve insufficiency
-s/p AVR (#29 Isaacs Inspiris Resilia aortic valve bioprosthesis, serial #[id number]) with Dr. Heck, 08/18/2024.
# Post op A fib, paroxysmal
-now back in sinus s/p amiodarone
-holding amiodarone for junctional rhythm
-CHADS2-VASC =1. Will not start OAC unless A fib recurs
#HTN
-Chronic.
-trend BP at recovers from OR; was on metoprolol as outpatient
DATA:
Cardiac Catheterization, 07/13/2024:
CONCLUSIONS:
1. Left dominant circulation with no coronary artery disease.
2. Mildly elevated filling pressures (LVEDP = 14 mmHg, PCWP = 15 mmHg at 82.6 kg).
3. Severe mitral valve regurgitation and aortic valve insufficiency by echocardiography.
Transesophageal echocardiography, 07/13/2024:
CONCLUSIONS
Mildly dilated LV with normal systolic function and no regional wall motion
abnormalities.
LVEF is 60-65% by visual estimation.
Normal RV size and function.
Myxomatous mitral valve disease with flail P3 segment resulting in severe
eccentric mitral regurgitation that is anteriorly directed.
Trileaflet aortic valve with likely moderate aortic insufficiency no
significant stenosis.
Compared to transthoracic echo from June 30, 2024, etiology of severe MR is
better appreciated as described above.
CTA Chest, 08/02/2024:
IMPRESSION:
1. Mild aneurysmal dilation of the ascending thoracic aorta, measuring 4 cm in greatest orthogonal dimension.
2. Mild calcification of the mitral and aortic valves. Mild coronary arterial calcification.
3. Bilateral lung nodules, measuring up to 4 mm in diameter. As per Fleischner Society recommendations, no further CT follow-up is required unless the patient is high risk for lung carcinoma, in which case a follow-up chest CT should be considered
in approximately 12 months.
Surgery:
Procedure(s) Performed:
1. Standard sternotomy with aortic and bicaval cannulation
2. Surgical aortic valve replacement [29 mm prosthesis]
3. Radical mitral valve repair [quadrangular resection of P3 and sliding plasty of P2 onto P3, 6 pairs of Burg[place]-Jerry cords placed with 4 going to the posterior leaflet and 2 going to the anterior leaflet at A2, 40 mm band annuloplasty, debridement of
mitral annular calcification]
4. Left atrial appendage exclusion [40 mm device]
5. Placement of temporary atrial and ventricular pacing wires
6. Transesophageal echocardiography
Physical Exam
Vital Signs/Labs
Vital Signs
Temp Pulse Resp BP Pulse Ox
99.9 F 70 18 119/71 95
08/22/24 08:00 08/22/24 08:00 08/22/24 08:00 08/22/24 08:00 08/22/24 08:00
08/21/24 08/22/24 08/23/24
06:59 06:59 06:59
Actual Weight 84 kg 82.5 kg
08/22/24 03:49
08/22/24 03:49
PT 19.0 Sec (11.4-14.6) H 08/18/24 16:30
INR 1.54 08/18/24 16:30
APTT 33.7 Sec (23.4-35.0) 08/18/24 16:30
Magnesium 2.2 mg/dl (1.6-2.3) 08/22/24 03:49
Physical Exam
Constitutional: No acute distress and Comfortable
EENT: Moist mucous membranes
Cardiovascular: Rhythm & rate is regular, Pedal edema is absent, JVD pressure is normal and Systolic murmur absent
Respiratory: Respiratory effort normal and Lungs clear to auscul.
Neuro/Psych: AO x 3
Data Reviewed
-
Date of Service: August 22, 2024
EKG: Other (Tele: junctional rhythm 70s)
Labs: Labs Reviewed by me
--- NOTE | 2024-08-22 11:14 | CM ---
dc plan remains home with S.O. when medically stable and a f/u visit form the ct transitional care nurse.
[2024-08-22] MEDS: TYLENOL 1000 MG PO ×2 (13:27→22:20)
[2024-08-22] MEDS: NSS 500 IV (15:15)
--- NOTE | 2024-08-22 15:30 | PTCARENOTE ---
Assumed care of patient at 1500. Pt is awake, alert, and oriented. No complaints of pain at this time. Pt remains junctional rhythm, HR 76. BP 124/75 MAP 88. Epicardial V wire in place set to 40//2. Currently off of Amio gtt. Pulse oximetry 96% on
room air. Pt reports having bowel movement. Tolerating PO diet. Voiding without issue. Midsternal incision approximated with surgical adhesive. Right IJ cordis in place with KVO. Pt ambulating with family in hallway without issue.
[2024-08-22] MEDS: ROXICODONE 5 MG PO (20:16)
--- NOTE | 2024-08-22 21:00 | PTCARENOTE ---
Assumed care of pt from dayshift RN. Walking rounds completed. Pt is AAOx3. Appropriate. Stand-by assist. Ambulates independently. Junctional on the tele monitor. HR 60-70s. Temporary epicardial V-wire intact and set to VVI 40/10/2. BP stable.
Palpable pulses throughout. No edema noted. Pt on RA. POX 98%. Deep breathing and IS encouraged. Occasional productive cough. Abdomen soft/nontender. +BS. Pt voiding w/o issue. All surgical sites stable. Right IJ cordis and PIV x1 intact. See MAR
for pain medication administration. See worklist for full nursing assessment and interventions. Call euceda within reach.
[2024-08-23] VITALS (7 sets, daily range): BP systolic 110–150; BP diastolic 68–80; PULSE 72; O2SAT 97; BMI 23.0
--- NOTE | 2024-08-23 00:25 | PTCARENOTE ---
No acute change in assessment. Pt is junctional on the tele monitor. HR high 50s- low 60s. Temporary epicardial v-wire intact. VSS. BP 116/68. Pt is 95% on RA. All surgical sites stable. Pt resting in bed at this time. Call euceda within reach.
[2024-08-23] MEDS: ROXICODONE 5 MG PO (02:40)
--- NOTE | 2024-08-23 03:37 | W.PN.CT ---
Today's Communication / Plan
-
Plan:
-No major issues overnight. Hemodynamically and neurologically intact
-No further a-fib since POD#3
-Mostly junctional rhythm (55-60's) overnight, asymptomatic
-Amiodarone and BB are on hold
-Repeat echo to re-assess valves
-Acute postop thrombocytopenia is resolving, 127K today, was 105K yesterday
-Encourage use of IS
-OOB into chair/Ambulate
-Consider d/c home today with [employer] heart monitor
-Has temporary A/V wires that will need to be cut if home today
Assessment / Plan
-
- s/p Radical Mitral valve repair [40 mm Isaacs physio flex annuloplasty band]; surgical Aortic valve replacement [29 mm prosthesis]; Left atrial appendage exclusion [40 mm device] by Dr. Heck
on 08/18/24, pod #5
- intraop GIANNI: LVEF preop was 60% with no significant wma. Following surgery, his EF remained the same at 60% with no new regional wall motion abnormalities. He was in a bigeminy rhythm after the surgery and so there was some dyskinesis. There was
no residual mitral valve insufficiency, no systolic anterior motion the leaflets, and a mean gradient of 1 across the valve. There was no paravalvular leak of the aortic valve bioprosthesis and a mean gradient of 3 across that valve. His left
atrial appendage was verified to be free of any thrombus or debris preoperatively and found to be totally occlusive postoperatively.
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
- Moderately severe aortic valve insufficiency secondary to calcium and prolapsing of the noncoronary cusp with involvement of the commissure
- Family history for thoracic aortic aneurysms requiring intervention
- Family history for mitral valve insufficiency requiring intervention
- Hypertension
- First-degree AV block
- Former history of smoking
- Mild pectus excavatum
- Former smoker, quit 2014
- EtOH (25-50 beers/week)
- Acute postop blood loss anemia
- Acute postop thrombocytopenia/hypercoagulopathy - s/p 2 FFPs, 2 platelets, DDAVP, Protamine
- Acute postop atelectasis
- Acute postop small right apical ptx
- Acute postop hypovolemia with subsequent hypervolemia
Discussed patient care with: Cardiology, Nursing, Respiratory Therapy, Pharmacy and Care Team
Subjective
Procedure
s/p Radical Mitral valve repair [40 mm Isaacs physio flex annuloplasty band]; surgical Aortic valve replacement [29 mm prosthesis]; Left atrial appendage exclusion [40 mm device] by Dr. Heck
on 08/18/24
-
Date of Service: August 23, 2024
Pt c/o mild incisional pain, otherwise feels well. Ambulating halls without difficulty
Objective Data
-
PT 19.0 Sec (11.4-14.6) H 08/18/24 16:30
INR 1.54 08/18/24 16:30
APTT 33.7 Sec (23.4-35.0) 08/18/24 16:30
Vital Signs
Vital Signs
Temp Pulse Resp BP Pulse Ox
98.7 F 60 16 116/68 95
08/23/24 00:09 08/23/24 00:09 08/23/24 00:09 08/23/24 00:09 08/23/24 00:09
CT Intake/Output/Weight
08/22/24 08/22/24 08/23/24
06:59 18:59 06:59
Intake Total 1929
Output Total 2350 / 3790 1200 / 3250 2049
Balance -2350 / -3530 730 / -1230 -1960 / -1230
SaO2: 95 (RA)
Physical Exam
-
General: Awake, Oriented and AOx3
Cardiovascular: Regular rate & rhythm (junctional rhythm 55-60's)
Respiratory: Decreased Breath Sounds (at bases, otherwise clear)
Sternum: Stable
Incision: Clean, Dry, Intact and Dressing Intact
Extremities: Other (+trace edema)
Data Reviewed
-
Lab Results: Results Reviewed
Medications: Active Meds Reviewed
Chest X-Ray: Report Reviewed and Image Reviewed
ECG: Report Reviewed and Image Reviewed
[2024-08-23 04:46] LABS: Hematocrit 24.7 % (39.0-52.0); Hemoglobin 8.6 g/dL (13.0-18.0); Mean Corp Hgb Conc. 34.8 g/dL (33.0-37.0); Mean Corpuscular Hgb 33.1 pg (27.0-31.0); Mean Platelet Volume 8.9 fL (7.4-10.4); Platelet Count 127 10^3/uL (130-400); Red Cell Dist. Width 11.9 % (11.5-14.5); White Blood Cell Count 5.7 10^3/uL (4.8-10.8)
--- NOTE | 2024-08-23 04:49 | PTCARENOTE ---
Assessment unchanged. VSS. Pt Junctional on the tele monitor. HR 50s. Pt dropped into low 40s requiring a couple V-paced beats and came right back up into the 50s. PA aware. BP stable. 94% on RA. All surgical sites stable. Pt voiding w/o issue. Labs
drawn and sent. Call euceda within reach.
[2024-08-23 05:16] LABS: Blood Urea Nitrogen 11 mg/dl (9-20); Calcium 8.7 mg/dl (8.4-10.2); Carbon Dioxide 28 mmol/L (22-30); Chloride 107 mmol/L (98-107); Estimated Creatinine Clearance > 125 ml/min; Glucose 102 mg/dl (70-99); Magnesium 2.3 mg/dl (1.6-2.3); Sodium 139 mmol/L (135-145); eGFR > 60.00
[2024-08-23] MEDS: TYLENOL 1000 MG PO (06:11)
--- NOTE | 2024-08-23 08:00 | PTCARENOTE ---
pt received from previous RN, oriented, OOB in chair. Junctional on the monitor, HR 60-70s. V wire in place, VVI 40/10. SBP 120s. palpable pulses, trace ankle edema. pt on RA, 98% POX. lungs clear. IS encouraged. + cough, occasionally productive.
abdomen s/n, denies n/v. +BS, +BM. voids. ambulates independently. sternal incision approximated, AKASH. chest tube site c/d/i. RIJ Cordis maintained. PIV. see worklist for VS, I&O, and assessment.
[2024-08-23] MEDS: MAGNESIUM OXIDE 500 MG PO (08:19)
[2024-08-23] MEDS: PROTONIX 40 MG PO (08:19)
[2024-08-23] MEDS: SENOKOT-S PO ×2 (08:19→08:24)
[2024-08-23] MEDS: LOW STRENGTH ASPIRIN 81 MG PO (08:19)
[2024-08-23] MEDS: ROXICODONE 2.5 MG PO (08:19)
[2024-08-23] MEDS: NEURONTIN 100 MG PO (08:19)
[2024-08-23] MEDS: LIDOCAINE 4% PATCH TOPICAL (08:22)
--- NOTE | 2024-08-23 08:23 | W.DCSUMMARY ---
Discharge Summary
Discharge Data
Date of Admission: 08/18/24
Date of Discharge: 08/23/24
-
Pending Results: No
Hospital Course
Primary care physician: Yolanda Hicks
Outpatient rail car mechanic: Juan Antonio Johnson
Inpatient consultants: [facility] cardiology, pulmonary environmental department manager
Procedures:
1. Aortic valve replacement, mitral valve repair, left atrial appendage clip, PFO/ASD closure
Primary Diagnosis:
1. Severe mitral valve insufficiency secondary to myxomatous degeneration and flail, moderately severe aortic valve insufficiency
Secondary Diagnoses:
1. HTN
2. EtOH misuse (25-50 beers/week)
3. Acute postop blood loss anemia
4. Acute postop thrombocytopenia/hypercoagulopathy - s/p 2 FFPs, 2 platelets, DDAVP, Protamine
5. Acute postop small right apical ptx
6. Acute postop atrial fibrillation/junctional rhythm
HPI: Javed Angel is a 58-year-old male electively admitted on 08/18/2024 for AVR, mitral valve repair due to severe mitral regurgitation and aortic insufficiency.
Hospital course: Patient underwent an aortic valve replacement [29 mm prosthesis, radical mitral valve repair [quadrangular resection of P3 and sliding plasty of P2 onto P3, 6 pairs of [place]-Jerry cords placed with 4 going to the posterior leaflet and
2 going to the anterior leaflet at A2, 40 mm band annuloplasty, debridement of mitral annular calcification], left atrial appendage exclusion [40 mm device], PFO/ASD primary closure by Dr. Zachary Heck. Postprocedure GIANNI reported an EF of 60 to
65%. Patient received no intraoperative blood products and returned to CVICU on Levophed, Precedex, and insulin. Patient did receive 2 FFP, 2 platelets, DDAVP 24 mcg and PEEP up to 10 cm for 130 cc chest tube drainage on arrival to CVICU. Patient
was in junctional rhythm with AAI temporary wire backup at 50 bpm. ACT on arrival was 142 and protamine 25 mg given. Repeat ACT was 134 and patient remained stable without need for further products. On postoperative day #1, Cardene was weaned off
and [place] Sera catheter removed. Patient was diuresed and received Toradol for pain. A small right apical pneumothorax was noted on the morning x-ray which resolved on postoperative day #2. On postoperative day #3, patient developed atrial
fibrillation/flutter (approximately 10 minute duration) and amiodarone infusion was started. Beta-annamarie continued to be held. Patient was diuresed with Bumex 1 mg. Right IJ cordis was maintained. The atrial wires were removed and mediastinal
chest tubes removed. Patient remained in junctional rhythm throughout remainder of stay. Amiodarone and beta-annamarie were discontinued per discussion with cardiology. No anticoagulation was recommended. Cardiology ordered a heart monitor for
discharge. Creatinine 0.6 and hemoglobin 8.6 on day of discharge. Patient will have a CBC in 1 week and will be followed by the transitional nurse team. Predischarge TTE reported normal biventricular size and systolic function without regional wall
motion abnormality. LVEF 50-55%. No MR, mean gradient 3 mmHg, the anterior MV leaflet moves toward the LVOT in systole but no obstruction is seen. Normally functioning bioprosthetic aortic valve, mean 10 mmHg, and no AR. No pericardial effusion.
Home medication changes:
Stop Metoprolol due to junctional rhythm
Lasix 20mg as needed for weight gain>3 pounds/day or 5 pounds/week
Discharge Plan
-
Patient Disposition: Home (Routine Discharge)
Discharge Diagnosis/Procedures: Aortic valve replacement, mitral valve repair, left atrial appendage clip
Condition: Good
Diet: Low Cholesterol and Low Sodium
Activity: No strenuous activity
Driving Restrictions: Not until seen by your Dr
Bathing Restrictions: OK to Shower
Blood Work: CBC in 1 week
Other Services: Cardiac Rehab
Specialty Instructions: Weigh Daily- Call MD for wt gain/loss 3 lbs overnight/5 lbs in 1 week
Referrals:
CT Transitional Care Nurse [Outside] (The Cardiothoracic Transitional Care Nurse will call you to set up a visit in 1-2 days.)
[facility] [Outside]
(Cardiac Rehab Orientation appointment is on 09/21/2024@ 08:30am.
The Cardiac Rehab gym is located on the first floor of the [facility].)
Hazel Chisholm CRNP [Specified Professional Personl] - 09/28/24 10:40 am
Yolanda Hicks PA-C [Family Provider] -
Zachary Heck MD [Active] - 09/19/24 9:45 am
Prescriptions:
New
aspirin 81 mg Tablet,Chewable
81 mg PO DAILY Qty: 0 0RF
cyclobenzaprine 10 mg Tablet
5 mg PO Q8HPRN PRN (Reason: muscle spasm) Qty: 10 0RF
acetaminophen 325 mg Tablet
650 mg PO Q4HPRN PRN (Reason: mild pain,headache,temp >101F ) Qty: 0 0RF
gabapentin 100 mg Capsule
100 mg PO TID Qty: 30 0RF
oxycodone 5 mg Tablet
5 mg PO Q4HPRN PRN (Reason: severe pain) Qty: 10 0RF
furosemide [Lasix] 20 mg tablet
20 mg PO .daily prn Qty: 5 0RF
Discontinued
metoprolol succinate 50 mg Capsule,Sprinkle,Er 24hr
50 mg PO DAILY
Discharge Orders:
Discharge Patient (As Directed); Ordered 08/23/24
Ordered By: Carly Gracia
Care Plan Goals
Care Plan Goals:
Problem: Readiness for enhanced knowledge related to diagnosis and treatment plan
Goal: Understand your diagnosis and treatment plan needs, including medications if applicable.
Instructions: Know your diagnosis, underlying causes and treatment plan options, including medications if applicable. Consult with your health care team to learn about your diagnosis and treatment plan, including medications if applicable.
Discharge Date and Time
Discharge Date/Time: 08/23/24 13:45
Print Language: OCCITAN
--- NOTE | 2024-08-23 08:50 | PTCARENOTE ---
pt placed back to bed. V wire cut by BRISA Carroll. KEVIN pratt dc'd, dressing c/d/i.
--- NOTE | 2024-08-23 09:14 | W.PN.UPDATE ---
Update Note
Progress Note Update
One bipolar ventricular wire clipped at skin level.
--- NOTE | 2024-08-23 11:15 | PTCARENOTE ---
pt VSS, no changes in assessment. ambulating in hallway independently, completed stairs w/ CR. ECHO completed. IS encouraged. voids in urinal.
[2024-08-23] MEDS: NSS IV (12:23)
--- NOTE | 2024-08-23 12:40 | W.PN.CD ---
Today's Communication / Plan
-
Tele ok from my perspective
OK for home as planned
Impression / Plan
-
Background: 58 y/o with HTN, HLD, tobacco abuse history, severe myxomatous mitral regurgitation and moderate/severe aortic valve insufficiency admitted for AVR/MVr.
S/p radical MV repair, bio AVR, and SAMANTA exclusion for severe myxomatous MV with severe MR and moderate/severe aortic valve insufficiency with a dilating LV; Dr. Heck, 08/18/2024.
- Echo today's shows no significant CUBA and good AVR/MR repair results
Accelerated junctional rhythm
- Can be seen after valvular heart surgery
- I would avoid rate slowing meds until this resolves
- MCOT reasonable to pursue
Brief post op A fib, paroxysmal
- [id number] 1 (HTN)
- No anticoagulation given brief duration and low risk score
HTN
Subjective:
Feel better every day
DATA:
Echo 08/23/2024
Normal biventricular size and systolic function without regional wall motion
abnormality.
Abnormal (paradoxical) septal motion consistent with postoperative state.
LV ejection fraction is 50-55% by visual assessment.
S/p mitral valve repair, no MR, mean gradient 3 mmHg, the anterior MV leaflet
moves toward the LVOT in systole but no obstruction is seen.
Normally functioning bioprosthetic aortic valve, mean 10 mmHg, and no AR.
No pericardial effusion.
Compared to prior study of 06/30/2024 the patient has undergone MV repair and
Bio AVR. LV dilatation is not appreciated on this followup echocardiogram.
Cardiac Catheterization, 07/13/2024:
1. Left dominant circulation with no coronary artery disease.
2. Mildly elevated filling pressures (LVEDP = 14 mmHg, PCWP = 15 mmHg at 82.6 kg).
3. Severe mitral valve regurgitation and aortic valve insufficiency by echocardiography.
Transesophageal echocardiography, 07/13/2024:
Mildly dilated LV with normal systolic function and no regional wall motion
abnormalities.
LVEF is 60-65% by visual estimation.
Normal RV size and function.
Myxomatous mitral valve disease with flail P3 segment resulting in severe
eccentric mitral regurgitation that is anteriorly directed.
Trileaflet aortic valve with likely moderate aortic insufficiency no
significant stenosis.
Compared to transthoracic echo from June 30, 2024, etiology of severe MR is
better appreciated as described above.
CTA Chest, 08/02/2024:
IMPRESSION:
1. Mild aneurysmal dilation of the ascending thoracic aorta, measuring 4 cm in greatest orthogonal dimension.
2. Mild calcification of the mitral and aortic valves. Mild coronary arterial calcification.
3. Bilateral lung nodules, measuring up to 4 mm in diameter. As per Fleischner Society recommendations, no further CT follow-up is required unless the patient is high risk for lung carcinoma, in which case a follow-up chest CT should be considered
in approximately [address] Heck, 08/18/2024:
Procedure(s) Performed:
1. Standard sternotomy with aortic and bicaval cannulation
2. Surgical aortic valve replacement [29 mm prosthesis]
3. Radical mitral valve repair [quadrangular resection of P3 and sliding plasty of P2 onto P3, 6 pairs of [place] cords placed with 4 going to the posterior leaflet and 2 going to the anterior leaflet at A2, 40 mm band annuloplasty, debridement of
mitral annular calcification]
4. Left atrial appendage exclusion [40 mm device]
5. Placement of temporary atrial and ventricular pacing wires
6. Transesophageal echocardiography
Physical Exam
Vital Signs/Labs
Vital Signs
Temp Pulse Resp BP Pulse Ox
98.3 F 68 16 110/76 95
08/23/24 11:13 08/23/24 11:10 08/23/24 11:13 08/23/24 11:10 08/23/24 11:13
08/22/24 08/23/24 08/24/24
06:59 06:59 06:59
Actual Weight 82.5 kg 81.1 kg
08/23/24 04:34
08/23/24 04:34
PT 19.0 Sec (11.4-14.6) H 08/18/24 16:30
INR 1.54 08/18/24 16:30
APTT 33.7 Sec (23.4-35.0) 08/18/24 16:30
Magnesium 2.3 mg/dl (1.6-2.3) 08/23/24 04:34
Data Reviewed
-
Date of Service: August 23, 2024
--- NOTE | 2024-08-23 13:56 | PTCARENOTE ---
pt discharge home w/ significant other. tele and IV dc'd. pt showered independently. Rhythm Star monitor applied by DIRECTOR RISK. discharge instructions reviewed w/ patient, S.O, and cousin. home meds reviewed, questions answered. pt dressed self. pt left via
wheelchair w/ all belongings.
== END 2024-08-23 13:45 | disposition home or self-care (01) | DRG 220 ==
LOC: CVICU 07:42
PROVIDERS: Anesthesiology; Nurse Practitioner; Physician Assistant Medical; ADMITTING PHYSICIAN Thoracic Surgery (Cardiothoracic Vascular Surgery); CONSULT PHYSICIAN Internal Medicine Critical Care Medicine; FAMILY PHYSICIAN Physician Assistant Medical
PROC: 02Q50ZZ Repair Atrial Septum, Open Approach (ICD-10-PCS; 2024-08-18)
PROC: 02UG0JZ Supplement Mitral Valve with Synthetic Substitute, Open Approach (ICD-10-PCS; 2024-08-18)
PROC: B24BZZ4 Ultrasonography of Heart with Aorta, Transesophageal (ICD-10-PCS; 2024-08-18)
PROC: 30233R1 Transfusion of Nonautologous Platelets into Peripheral Vein, Percutaneous Approach (ICD-10-PCS; 2024-08-18)
PROC: 02RF08Z Replacement of Aortic Valve with Zooplastic Tissue, Open Approach (ICD-10-PCS; 2024-08-18)
PROC: 30233K1 Transfusion of Nonautologous Frozen Plasma into Peripheral Vein, Percutaneous Approach (ICD-10-PCS; 2024-08-18)
PROC: 5A1221Z Performance of Cardiac Output, Continuous (ICD-10-PCS; 2024-08-18)
PROC: 02L70CK Occlusion of Left Atrial Appendage with Extraluminal Device, Open Approach (ICD-10-PCS; 2024-08-18)
PROC: 02BG0ZZ Excision of Mitral Valve, Open Approach (ICD-10-PCS; 2024-08-18)
DX: I35.0 Nonrheumatic aortic (valve) stenosis (principal); D62 Acute posthemorrhagic anemia; Q21.12 Patent foramen ovale; D68.8 Other specified coagulation defects; J95.811 Postprocedural pneumothorax; J98.11 Atelectasis; I48.92 Unspecified atrial flutter; I35.1 Nonrheumatic aortic (valve) insufficiency; I34.81 Nonrheumatic mitral (valve) annulus calcification; Q67.6 Pectus excavatum; I10 Essential (primary) hypertension; I44.0 Atrioventricular block, first degree; F41.9 Anxiety disorder, unspecified; R91.1 Solitary pulmonary nodule; R73.9 Hyperglycemia, unspecified; D69.59 Other secondary thrombocytopenia; I48.91 Unspecified atrial fibrillation; Y83.2 Surgical operation with anastomosis, bypass or graft as the cause of abnormal reaction of the patient, or of later complication, without mention of misadventure at the time of the procedure; E78.5 Hyperlipidemia, unspecified; I71.21 Aneurysm of the ascending aorta, without rupture; E86.1 Hypovolemia; E87.70 Fluid overload, unspecified; J44.9 Chronic obstructive pulmonary disease, unspecified; Z79.899 Other long term (current) drug therapy; Z82.49 Family history of ischemic heart disease and other diseases of the circulatory system; Z87.891 Personal history of nicotine dependence
CPT/HCPCS: 88305; 88311; 93308; 36415; 71045; 71046; 80048; 80053; 81003; 81015; 82248; 82330; 82565; 82805; 82810; 82947; 82962; 83036; 83735; 84132; 84302; 84520; 85014; 85018; 85025; 85027; 85049; 85610; 85730; 86850; 86900; 86901; 86920; 87070; 93005; 93312; 93320; 93321; 93325; 93880; 94002; 94010; 94060; J2597; J2916; P9059; P9073

== ENCOUNTER 2024-08-25 12:14 | Observation (INO) | payer OTHER, SELFPAY ==
[2024-08-25] VITALS (14 sets, daily range): BP systolic 104–145; BP diastolic 70–91; BMI 22.2
--- NOTE | 2024-08-25 07:48 | ED.GENMED ---
History of Present Illness
General
Chief Complaint: Visual Problem
Source: patient, records and spouse
Exam Limitations: none
Time Seen by Provider: 08/25/24 07:34
Nursing documentation reviewed up to this point in time: agreed with
History of Present Illness
History of Present Illness:
58-year-old male with past medical history of hypertension, aortic stenosis with recent mitral valve and aortic valve replacement presents to the emergency department for evaluation of double vision. Patient had surgery with Dr. Heck on 08/18/2024
for aortic and mitral valve replacement. He was released from the hospital 2 days ago. He says he has been doing generally well since discharge. This morning about 20 minutes prior to arrival he had onset of binocular diplopia. Symptoms have
been constant since that time�he feels may be marginally improved since onset. He denies any headache. Denies any visual loss. Denies any focal weakness or numbness in his extremities. He denies any other complaints. He says he had some
postoperative chest pain yesterday but currently chest pain-free.
Past History
Past History
ED Past Medical History: None
Social History
Personal:
Living: with family
Review of Systems
Review of Systems
All Other Systems: ROS reviewed and negative except as documented in HPI and ROS
Constitutional: Denies fever
Respiratory: Denies trouble breathing
Cardiac: Denies chest pain
ABD/GI: Denies abdominal pain
Musculoskeletal: Denies neck pain or back pain
Neurological: Reports other (Diplopia); Denies headache, weakness or numbness
Phy Exam
Physical Exam
Physical Exam:
General: Awake, alert, oriented x3; no acute distress
Head: Normocephalic, atraumatic
Eyes: Conjunctiva normal, right cranial nerve IV palsy; pupils equal round and reactive to light bilaterally
Throat: Airway intact, handling secretions
Neck: Trachea midline, supple without meningismus
Lungs: Clear to auscultation bilaterally, no wheezing, rales, rhonchi
Heart: Regular rate and rhythm, systolic murmur, midline chest incision well-healing
Abd: Soft, non distended, nontender
Neuro: Cranial nerve IV palsy on the right; no limb ataxia, motor and sensory intact upper and lower extremities proximally and distally
Extremities: Warm and well-perfused with no edema
Scores
NIH Stroke Score
Level of Consciousness: 0 - Alert
LOC Questions: 0-Answers both correctly
LOC Commands: 0-Performs both correctly
Best Horizontal Gaze: 1-Partial gaze palsy
Visual Srivastava: 0=Normal, no visual loss
Facial Palsy: 0=Normal, symmetrical
Motor - Right Arm: 0=No drift 10 seconds
Motor - Left Arm: 0=No drift 10 seconds
Motor - Right Le-No drift 5 seconds
Motor - Left Le-No drift 5 seconds
Limb Ataxia: 0-Absent
Sensation: 0-Normal
Best Language: 0-No aphasia
Dysarthria: 0-Normal
Extinction and Inattention: 0-No abnormality
Total Score:: 1
Thrombolytic Contraindication
Inclusion and Exclusion criteria reviewed: Yes
Reasons for NON-Tx with Thrombolytics POSSIBLE Exclusions: Major surgery or serious trauma within proceding 14 days
Heart Failure Risk
Heart Failure Risk Score: Not Applicable
Heart Score for Chest Pain Patients
STEMI patient?: Not applicable
Withdrawal Assessment of Alcohol
Withdrawal Assessment Completed?: Not applicable
Course
Orders/Labs/Results
Orders:
Orders
08/25/24 07:27
Electrocardiogram (*1) Urgent
Reason for Study: Chest Pain
08/25/24 07:35
Electrocardiogram (*1) Urgent
Reason for Study: TIA/Stroke
EKG- Treatment ONCE
08/25/24 07:42
CT HEAD STROKE ALERT W/o Cont Urgent
Comment:
Reason For Exam: diplopia
CT HEAD/NECK ANG STROKE ALERT Urgent
Comment:
Reason For Exam: diplopia
Cardiac Monitoring- Treatment ONCE
Vital Signs- Treatment ONCE
Frequency: Hourly
08/25/24 07:47
Complete Blood Count/With Diff Urgent
Comprehensive Metabolic Panel Urgent
PTT Urgent
Prothrombin Time Urgent
08/25/24 08:23
Gabapentin [Neurontin] 100 mg PO NOW STA
08/25/24 08:24
Cyclobenzaprine HCl [Flexeril] 5 mg PO ONCE ONE
08/25/24 09:23
Acetaminophen [Tylenol] 650 mg PO NOW STA
Abnormal Lab Results
08/25/24
07:47
RBC 3.22 L 10^6/uL
(4.70-6.10)
Hgb 10.6 L D g/dL
(13.0-18.0)
Hct 30.1 L %
(39.0-52.0)
MCH 32.9 H pg
(27.0-31.0)
Abs Immat Gran (auto) 0.1 H 10^3/uL
(0-0.05)
Absolute Monos (auto) 0.7 H 10^3/uL
(0.1-0.6)
Immature Gran % 0.7 H %
(0-0.5)
APTT 40.7 H Sec
(23.4-35.0)
Glucose 111 H mg/dl
(70-99)
08/25/24 07:47
08/25/24 07:47
Vital Signs
Initial and Last Documented VS:
Initial Vital Signs
Temp Pulse Resp BP Pulse Ox
36.8 C 86 18 135/87 98
08/25/24 07:24 08/25/24 07:24 08/25/24 07:24 08/25/24 07:24 08/25/24 07:24
Last Documented Vital Signs
Temp Pulse Resp BP Pulse Ox
36.8 C 74 16 121/71 96
08/25/24 07:24 08/25/24 09:15 08/25/24 09:15 08/25/24 09:00 08/25/24 09:15
MDM/Problems Addressed
Differential Diagnosis Includes:
Stroke/TIA, seizure, brain bleed
MDM/Problems Addressed:
58-year-old male presents for diplopia; he is 1 week removed from cardiac surgery as described above. Onset about 20 minutes prior to arrival generally improving but still present on arrival. He does have appears to be a right cranial nerve IV
palsy but otherwise normal neurologic exam. Stroke alert called after initial assessment. IV placed labs sent off including a CBC and a CMP, coags. Check EKG. Sent for CT head. Discussed with CT surgeon and neurologist. Monitor closely
reassess after the above.
Discussed with radiologist�CT head negative for any acute pathology. Patient seen by neurologist and fortunately his diplopia has resolved. No TNK, continue to monitor.
CTA head and neck negative for any acute pathology. He continues to report symptom resolution. Discussed case with neurology who recommended admission for further monitoring and evaluation after this episode. Discussed with CT surgery to update
given recent procedure. Discussed with hospitalist for admission.
Chronic conditions affecting care:
Hypertension, valvular disease
*Radiology
Radiology exam reviewed: radiology read reviewed
*Pulse Oximetry
Patient hypoxic: no
*EKG
Interpreted by ED Provider?: Yes
Heart Rate: 66
Rate: normal
Rhythm: sinus
[place]: normal axis
Interval: normal interval
QRS Pattern: left vent hypertrophy
Ischemia: non-specific ST changes
*Critical Care Note
Total Time (30-74mins, 75-104mins- exclusive of procedures): Not Applicable
Data Reviewed
Review of Other/Old Records Reveals: Labs, Records and Discharge Summary
Source: patient, records and spouse
Patient Management
Discussion with other providers: Hospitalist (Discussed with hospitalist), Unarmed Security Guard (Discussed with neurology, discussed with cardiothoracic surgeon) and Radiologist (Discussed with radiologist)
Escalation/DeEscalation of care consider admission/obs:
Admission indicated
ED Attending Note
-
Portions of this chart may have been created with voice recognition software.� Occasional wrong word or��sound alike� substitutions may have occurred due to the inherent limitations of voice recognition software.
Discharge Plan
Departure
Patient Disposition: Admit
Date of Disposition: 08/25/24
Time of Disposition: 10:07
Admit to doctor: Yamil
Presentation/result/management discussed w/ accepting MD/DO: Hospitalist
Discharge Problem:
Diplopia
Prescriptions:
No Action
aspirin 81 mg Tablet,Chewable
81 mg PO DAILY Qty: 0 0RF
cyclobenzaprine 10 mg Tablet
5 mg PO Q8HPRN PRN (Reason: muscle spasm) Qty: 10 0RF
acetaminophen 325 mg Tablet
650 mg PO Q4HPRN PRN (Reason: mild pain,headache,temp >101F ) Qty: 0 0RF
gabapentin 100 mg Capsule
100 mg PO TID Qty: 30 0RF
oxycodone 5 mg Tablet
5 mg PO Q4HPRN PRN (Reason: severe pain) Qty: 10 0RF
furosemide [Lasix] 20 mg tablet
20 mg PO DAILYPRN PRN (Reason: weight gain of 3 pds)
Referrals:
Yolanda Hicks PA-C [Family Provider] -
Interventions
Interventions:
*Risk Screen - Suicide Last Done: 08/25/24 07:24
*General Assessment Last Done: 08/25/24 07:24
*Neglect/Abuse Screening Last Done: 08/25/24 07:24
*ED- Fall Risk Assessment Last Done: 08/25/24 08:53
*ED COVID-19 Vaccine History Last Done: 08/25/24 08:53
ED- Neurological Assessment Last Done: 08/25/24 07:38
ED-EENT Assessment Last Done: 08/25/24 09:05
Discharge Date and Time
Print Language: MAURITANIAN
[2024-08-25 07:56] LABS: % Basophils 0.4 % (0-2); % Eosinophils 4.4 % (0-6); % Immature Granulocytes 0.7 % (0-0.5); % Lymphocytes 21.4 % (20.5-51.1); % Monocytes 9.2 % (1.7-9.3); % Neutrophils 63.9 % (42.2-75.2); Absolute Eosinophils 0.3 10^3/uL (0-0.7); Absolute Immature Granulocytes 0.1 10^3/uL (0-0.05); Absolute Lymphocytes 1.6 10^3/uL (1.2-3.4); Absolute Monocytes 0.7 10^3/uL (0.1-0.6); Absolute Neutrophils 4.7 10^3/uL (1.4-6.5); Hematocrit 30.1 % (39.0-52.0); Hemoglobin 10.6 g/dL (13.0-18.0); Mean Corp Hgb Conc. 35.2 g/dL (33.0-37.0); Mean Corpuscular Hgb 32.9 pg (27.0-31.0); Mean Corpuscular Volume 93.5 fL (80.0-94.0); Mean Platelet Volume 8.5 fL (7.4-10.4); Nucleated Red Blood Cells % 0 % (-); Platelet Count 219 10^3/uL (130-400); Red Blood Cell Count 3.22 10^6/uL (4.70-6.10); Red Cell Dist. Width 11.9 % (11.5-14.5); White Blood Cell Count 7.4 10^3/uL (4.8-10.8)
--- NOTE | 2024-08-25 08:04 | CON.NEURO ---
Consultation
Order
Date of Consultation: 08/25/24
Requesting Provider: Isael Roca MD
Reason for Consult: Stroke alert
Called in 7:43 AM
Neurology Consultation Note.
HPI: This is a 58-year-old man who presented to [facility] on August 25, 2024 with visual symptoms. According to the patient he developed transient painless binocular skew diplopia worse with left lateral and down gaze that occurred
around 20 minutes prior to ER arrival. The symptoms were not present upon awakening around 7:00 am. No reports of headaches, motor, sensory or speech deficits. Mr. Baker felt states that he had similar episodes lasting for 1 minute following his
recent MVR/AVR.
ER VS: 137/95, 69, afebrile.
EKG: Ectopic cardiac rhythm, QTc Int : 446 ms
PDMP:Oxycodone Hcl (Ir) 5 Mg 10 tablets filled in on 08/23/2024
Labs: Hemoglobin�10.6,
CT head wo contrast�unremarkable
CTA head/neck
PMH: h/o myxomatous MV with severe MR, DLP, IGT, intraventricular conduction defect,
PSH: MV repair, bio AVR, and SAMANTA exclusion (08/18/2024)
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
FH: Not contributory
All:NKDA
ROS: Positive for diplopia
General: Well developed. In no acute distress.
Cardio: Regular rate and rhythm without murmur. Extremities are without cyanosis or edema.
Neuro:
Mental Status: Alert, oriented to person, place, and date. Normal attention and recall. Good fund of knowledge. Follows complex requests across the midline. Comprehension, naming, and repetition intact.
Cranial Nerves: Pupils are equally round and reactive to light. EOMs full. Visual jerome full to confrontation. No ptosis. No nystagmus. V1-V3 intact to light touch and pinprick bilaterally, symmetric. Face symmetric. Normal hearing AU. The
palate elevated well. SCMs and traps 5/5. Tongue midline. No dysarthria.
Motor: Normal bulk and tone. No pronator or arm drift. Strength 5/5 throughout. No clonus.
Sensory: No extinction to DSS
Coordination: No dysmetria or tremor.
Gait: deferred
Assessment and Plan:
I. Transient diplopia. Not a candidate for IV TNK due to the transient nature of patient's symptoms. Differential diagnosis includes vascular versus neuromuscular junction disorder.
II. PA A-Fib(post op)
III. Status post MV repair, bio AVR, and SAMANTA exclusion
-Continue Telemetry monitoring
-Brain MRI without
-Please start DAPT if no contraindications from cardiology perspective
-Please check HbA1C, LDL, TFTs, MG panel
-DVT prophylaxis.
-Will follow
I personally reviewed all radiology and labs along with past medical records pertinent to current medical problems. Total time spent in patient care is 60 minutes.
Thank you for allowing us to participate in the care of this patient. We will continue to follow. Please do not hesitate to contact us with any questions or concerns.
Subjective/Objective
Subjective Data
Date of Service: August 25, 2024
Objective Data
Vital Signs
Temp Pulse Resp BP Pulse Ox
36.8 C 69 16 137/91 98
08/25/24 07:24 08/25/24 07:36 08/25/24 07:36 08/25/24 07:36 08/25/24 07:36
Lab Results
08/25/24 07:47
Patient Allergies
No Known Allergies Allergy (Verified 08/09/24 16:05)
Medications
-
Home Medications
�Medication �Instructions �Recorded
aspirin 81 mg chewable tablet 81 mg PO DAILY Blood clot 08/22/24
prevention/tx #0 tabs
acetaminophen 325 mg tablet 650 mg (2 x 325 mg) PO Q4HPRN PRN 08/23/24
mild pain,headache,temp >101F #0
tabs
cyclobenzaprine 10 mg tablet 5 mg (1/2 x 10 mg) PO Q8HPRN PRN 08/23/24
muscle spasm #10 tabs
furosemide 20 mg tablet (Lasix) 20 mg PO .daily prn wt gain more 08/23/24
than 3 pounds/day or 5 pounds/week
#5 tabs
gabapentin 100 mg capsule 100 mg PO TID post-op nerve pain 08/23/24
#30 caps
oxycodone 5 mg tablet 5 mg PO Q4HPRN PRN severe pain #10 08/23/24
tabs
Vital Signs and Labs
-
Vital Signs and Labs:
Vital Signs
Temp Pulse Resp BP Pulse Ox
36.8 C 69 16 137/91 98
08/25/24 07:24 08/25/24 07:36 08/25/24 07:36 08/25/24 07:36 08/25/24 07:36
Lab Results
08/25/24 07:47
Home Medications
-
Home Medications
aspirin 81 mg chewable tablet 81 mg PO DAILY Blood clot prevention/tx #0 tabs 08/22/24
acetaminophen 325 mg tablet 650 mg (2 x 325 mg) PO Q4HPRN PRN mild pain,headache,temp >101F #0 tabs 08/23/24
cyclobenzaprine 10 mg tablet 5 mg (1/2 x 10 mg) PO Q8HPRN PRN muscle spasm #10 tabs 08/23/24
gabapentin 100 mg capsule 100 mg PO TID post-op nerve pain #30 caps 08/23/24
oxycodone 5 mg tablet 5 mg PO Q4HPRN PRN severe pain #10 tabs 08/23/24
furosemide 20 mg tablet (Lasix) 20 mg PO DAILYPRN PRN weight gain of 3 pds 08/25/24
[2024-08-25 08:07] LABS: INR 1.05; PT 14.2 Sec (11.4-14.6)
[2024-08-25 08:08] LABS: APTT 40.7 Sec (23.4-35.0)
[2024-08-25 08:11] LABS: ALT (SGPT) 21 U/L (0-50); AST (SGOT) 25 U/L (17-59); Albumin 3.7 g/dl (3.5-5.0); Alkaline Phosphatase 51 U/L (38-126); Blood Urea Nitrogen 10 mg/dl (9-20); Calcium 9.4 mg/dl (8.4-10.2); Carbon Dioxide 28 mmol/L (22-30); Chloride 105 mmol/L (98-107); Glucose 111 mg/dl (70-99); Sodium 140 mmol/L (135-145); Total Bilirubin 0.8 mg/dl (0.2-1.3); Total Protein 6.6 g/dl (6.3-8.2); eGFR > 60.00
[2024-08-25] MEDS: FLEXERIL 5 MG PO ×2 (08:36→17:53)
[2024-08-25] MEDS: NEURONTIN 100 MG PO ×3 (08:36→22:10)
[2024-08-25] MEDS: TYLENOL 650 MG PO ×3 (09:29→22:10)
[2024-08-25 11:01] LABS: Iron 30 ug/dl (49-181)
[2024-08-25 11:10] LABS: Percent Saturation 11 % (20-50); Total Iron Binding Capacity 266 ug/dl (261-462)
--- NOTE | 2024-08-25 11:50 | HPS.HSE ---
Addendum entered and electronically signed by Olive Sarah MD 08/25/24 15:55:
Seen earlier. Late documentation
I personally performed a history and physical exam of the patient and discussed management with the resident. I reviewed the resident's note and agree with the documented findings and plan of care HPI/CC except for changes in my documentation
58-year-old male had recent visual changes on Thursday where he had diplopia lasted for 1 minute twice. Today it happened again and lasted for about 20 minutes. Denies any other symptoms such as chest pain shortness of breath, headaches numbness
tingling dysphagia or any trauma
On examination awake alert oriented
Cardiovascular system S1-S2 appreciated
Midline sternotomy wound looks stable no discharge
Chest few rales right base
Abdomen soft and nontender
Neuroexam no diplopia no extraocular muscle palsy
Normal cranial nerves
Normal sensorimotor exam
MRI brain-no acute changes
CTA head and neck-no carotid atherosclerotic narrowing, bilateral internal carotid artery dissection or vertebral artery dissection. Mildly dominant left vertebral artery.
EKG-ectopic atrial rhythm, nonspecific ST-T changes in the lateral leads.
# Diplopia
Symptoms resolved
MRI without contrast without any evidence of stroke
Continue aspirin
Check acetylcholine receptor antibody and musk antibody-ordered
# Recent surgical aortic valve replacement-prosthetic, mitral valve repair, left atrial appendage exclusion, PFO/ASD closure on 08-19-[address] Heck-CT surgery consulted
# Transient atrial fibrillation postoperatively
# Anemia-add p.o. iron and low normal B12 to be replaced. Patient also had acute postoperative blood loss anemia
# History of heavy alcohol use 25-50 beers per week last use was 10 days ago- Thiamine ordered
# DVT prophylaxis-Lovenox
# Full code
Original Note:
Family Physician
-
Family Physician: Yolanda Hicks
Chief Complaint
-
Diplopia
History of Present Illness
The patient is a 58-year-old male with a past medical history of hypertension and cardiac valve problems. He recently was discharged from the hospital 2 days ago after having surgery with Dr. Gomez on 08/18/2024 for aortic valve and mitral valve
replacement. The patient presented to ER having diplopia feeling on his right eye. He stated he had first episode of diplopia on Thursday when he was at the ICU and it lasted in 1 minute, following 3 hours later, he had a second episode of
diplopia which also lasted in 1 minute. This morning, he had a similar episode of double vision in the morning that lasted about 20 minutes and he came to the hospital. He denied having headache, nausea, vomiting or losing his consciousness during
these episodes. He was obtained head and neck CT at ER admission which was not remarkable. The patient was discussed with neurology and planned to obtain an MRI.
Medical History
Past Medical History
Past Medical History: Reports Arrhythmia (History of interventricular conduction defect, first-degree AV block), HTN and Other (s/p mitral valve proplapse/regurgitation and aortic valve insufficiency, mild ascending aorta dilatation)
Past Surgical History: Reports Other (Aortic and mitral valve replacement on 08/18/2024)
Additional Past Surgical History:
Aortic and mitral valve repairment on 08/18/2024
Social History
Tobacco: Former Smoker (Quitted smoking-smoke 25 years- 1.5/daily )
Alcohol: Former (Drinks 12-15 beers 3-4 days/weekly-reporting his last drinking was more than 1 week ago before the surgery)
Drug: None
Personal: Partner
Living: With Family
Family History
Family History: Other (Father , hypertension, cancer mother: Had stroke at old age)
Allergies / Home Medications
Allergies reflects when Allergies were last updated in [facility].
Home Medications with original date entered in [facility]
Allergy/Medication List:
Allergies
Allergy/AdvReac Type Severity Reaction Status Date / Time
No Known Allergies Allergy Verified 08/09/24 16:05
Home Medications
aspirin 81 mg chewable tablet 81 mg PO DAILY Blood clot prevention/tx #0 tabs 08/22/24
acetaminophen 325 mg tablet 650 mg (2 x 325 mg) PO Q4HPRN PRN mild pain,headache,temp >101F #0 tabs 08/23/24
cyclobenzaprine 10 mg tablet 5 mg (1/2 x 10 mg) PO Q8HPRN PRN muscle spasm #10 tabs 08/23/24
gabapentin 100 mg capsule 100 mg PO TID post-op nerve pain #30 caps 08/23/24
oxycodone 5 mg tablet 5 mg PO Q4HPRN PRN severe pain #10 tabs 08/23/24
furosemide 20 mg tablet (Lasix) 20 mg PO DAILYPRN PRN weight gain of 3 pds 08/25/24
Review of Systems
-
History Source: Patient
EENT: Reports See HPI and Other (Double vision on the right eye-resolved)
Respiratory: Reports No Symptoms
Cardiac: Reports See HPI
Abdomen/GI: Reports No Symptoms
Musculoskeletal: Reports No Symptoms
Skin: Reports No Symptoms
Neurological: Reports See HPI
Physical Exam
Vital Signs
Vital Signs
Temp Pulse Resp BP Pulse Ox
98.2 F 81 18 127/72 92
08/25/24 07:24 08/25/24 10:30 08/25/24 10:30 08/25/24 10:00 08/25/24 10:30
Physical Exam
General: Well Developed, Well Nourished and Good Appetite
HEENT: NormoCephalic, Anicteric and Other (No abnormal physical findings on exam-no diplopia was seen)
Respiratory: Clear
Cardiac: S1/S2 and Regular Rhythm
GI: Soft and Non Tender
Musculoskeletal: No Clubbing, No Cyanosis and No Edema
Skin: Warm
Neuro: Awake, Alert, Oriented, AO x 3 and Nonfocal/grossly intact
Psych: Anxious
Laboratory Results
-
08/25/24 07:47
08/25/24 07:47
Laboratory Results
PT 14.2 Sec (11.4-14.6) 08/25/24 07:47
INR 1.05 08/25/24 07:47
APTT 40.7 Sec (23.4-35.0) H 08/25/24 07:47
Total Bilirubin 0.8 mg/dl (0.2-1.3) 08/25/24 07:47
AST 25 U/L (17-59) 08/25/24 07:47
ALT 21 U/L (0-50) 08/25/24 07:47
Alkaline Phosphatase 51 U/L (38-126) 08/25/24 07:47
Impression/Plan
-
IMPRESSION:
Patient is a 58-year-old young male who presented to the ER having short episode of double vision problem. He reported he had first 2 episodes of double vision during the hospitalization following his cardiac valve surgery. He reports that he
mostly feels he has double vision on his right eye. This morning, experienced short episode of double vision and it lasted in 20 minutes. He was seen by neurology and obtained head and neck CT which was not remarkable. it was planned to obtain a
brain MRI. The patient was also consulted to cardiothoracic surgery.
PLAN:
# Diplopia
-Head CT and neck CT: No demonstrable carotid atherosclerotic narrowing, bilateral internal carotid artery dissection or bilateral vertebral artery dissection. Mildly dominant left vertebral artery
-Neurology on board
-Hold Aspirin for now (Started on baby aspirin after the surgery)
-Neurology recommended DAPT therapy if there is no objection from cardiothoracic team
-Brain MRI is pending to be obtained
-Vitamin B-1, vitamin B12, folic acid was ordered
-Thiamine was started
#Recent surgery of aortic valve replacement and mitral valve repair
-Had surgery on 08/18/2024
-Had 2 episodes of diplopia following his surgery while staying at the ICU which lasted in 1 minute
-Postprocedure GIANNI reported an EF of 60 to 65%.
-Recommended Lasix 20 mg as needed for weight gain>3 pounds/day or 5 pounds/week
-Cardiothoracic surgery was consulted
-Incentive spirometry ordered
# Arrhythmia (junctional rhythm)
- Metoprolol stopped due to junctional rhythm with his discharge on 08/23/2024
# Alcohol use problem
- Drinks 12-15 beers daily/ 3-4 days a week
- Reports last drink was about 1 week ago
- Denies history of alcohol withdrawal
# DVT prophylaxis
-SCDs for now
# CODE STATUS: DNR
[2024-08-25 12:39] LABS: Vitamin B12 379 pg/ml (239-931)
[2024-08-25] MEDS: LOW STRENGTH ASPIRIN 81 MG PO (13:20)
--- NOTE | 2024-08-25 15:09 | W.PN.UPDATE ---
Update Note
Progress Note Update
Patient called answering service this morning and complained of diplopia lasting greater than 20 minutes. I recommended him come to the ER. Upon arrival a stroke alert was called however CT workup was negative and neurology was consulted and
recommended a MRI. MRI is pending.
Dr. Heck and Dr. Leslie was updated.
Okay to initiate DAPT
[2024-08-25 15:44] LABS: Folate 18.4 ng/ml (2.76-20)
[2024-08-25 16:25] LABS: Free T4 1.22 ng/dl (0.78-2.19)
[2024-08-25 16:55] LABS: TSH 1.23 uIU/ml (0.47-4.68)
[2024-08-25] MEDS: FEOSOL 325 MG PO (17:13)
--- NOTE | 2024-08-25 17:13 | CON.CAR ---
Addendum entered and electronically signed by Juan Antonio Johnson MD 08/25/24 18:12:
58 yo male with HTN, severe myxomatous mitral regurgitation and moderate/severe aortic valve insufficiency with recent surgery (S/p radical MV repair, bio AVR, and SAMANTA exclusion for severe myxomatous MV with severe MR and moderate/severe aortic
valve insufficiency with a dilating LV; Dr. Heck, 08/18/2024). He did have post op A fib. Now is admitted with diplopia: 2 episodes. Currently, no symptoms. Exam with RRR, no murmurs, no edema. Brain MRI: no stroke. EKG: ectopic atrial rhythm.
If this is thought to be a TIA, given history of post op Afib, I would favor eliquis 5mg bid.
Original Note:
Consultation
Consultation Request
Date/Time Consultation Requested: 08/25/241704
Date/Time Consultation Performed: 08/25/241714
Requesting Provider: Dr. Sarah
Performing Provider: Michelle PEREZ for Dr. Johnson
Reason for Consultation: diploplia, post-op AFIB
Medical History
-
Chief Complaint: diploplia
History of Present Illness:
58 y/o male with HTN, HLD, tobacco abuse history, severe myxomatous mitral regurgitation and moderate/severe aortic valve insufficiency with recent surgery (S/p radical MV repair, bio AVR, and SAMANTA exclusion for severe myxomatous MV with severe MR
and moderate/severe aortic valve insufficiency with a dilating LV; Dr. Heck, 08/18/2024). Post-op patient had brief AFIB, but was not started on OAC for [id number] score 1 and brief post-op episode. He also was seen to have junctional rhythm and not
on BB at d/c as result- wearing rhythmstar monitor. He is here for evaluation of diplopia that he noted this AM for about 20 minutes. No other symptoms. It has since resolved. MRI negative for stroke. Neuro on the case. We are asked to comment on
anticoagulation.
Past Medical History
Past Medical History: Arrhythmias, HTN, Hypercholesterolemia and Valvular Disease
Social History
Tobacco: Former Smoker
Family History
Family History: Reviewed & Not Pertinent
Allergies / Home Medications
Allergy/AdvReac Type Severity Reaction Status Date / Time
No Known Allergies Allergy Verified 08/09/24 16:05
�Medication �Instructions �Recorded �Confirmed �Type
aspirin 81 mg chewable tablet 81 mg PO DAILY Blood clot 08/22/24 08/25/24 Rx
prevention/tx #0 tabs
acetaminophen 325 mg tablet 650 mg (2 x 325 mg) PO Q4HPRN PRN 08/23/24 08/25/24 Rx
mild pain,headache,temp >101F #0
tabs
cyclobenzaprine 10 mg tablet 5 mg (1/2 x 10 mg) PO Q8HPRN PRN 08/23/24 08/25/24 Rx
muscle spasm #10 tabs
gabapentin 100 mg capsule 100 mg PO TID post-op nerve pain 08/23/24 08/25/24 Rx
#30 caps
oxycodone 5 mg tablet 5 mg PO Q4HPRN PRN severe pain #10 08/23/24 08/25/24 Rx
tabs
furosemide 20 mg tablet (Lasix) 20 mg PO DAILYPRN PRN weight gain 08/25/24 08/25/24 History
of 3 pds
Review of Systems
-
History Source: Patient
All other systems: Negative unless noted
Neurological: Other (diplopia)
Physical Exam
Vital Signs
Temp Pulse Resp BP Pulse Ox
98.2 F 78 15 124/81 97
08/25/24 07:24 08/25/24 15:45 08/25/24 11:15 08/25/24 15:27 08/25/24 15:45
Lab Results
08/25/24 07:47
08/25/24 07:47
Physical Exam
General: Well Developed, Well Nourished and No Apparent Distress
HEENT: Normocephalic and Anicteric
Respiratory: Clear and Non Labored Respirations
Cardiac: Regular Rhythm
Musculoskeletal: No Edema
Skin: Warm and Other (midsternal incision well-approximated)
Neuro: AO x 3
Psych: Calm
Impression / Plan
-
Diplopia:
-resolved
-neuro on board
-MRI negative for acute abnormality
-possible TIA, so with recent PAF, recommend Eliquis 5 mg PO BID rather than ASA/plavix- to discuss with team
Severe myxomatous mitral regurgitation and moderate/severe aortic valve insufficiency s/p radical MV repair, bio AVR, and SAMANTA exclusion for severe myxomatous MV with severe MR and moderate/severe aortic valve insufficiency with a dilating LV;
Maria R, 08/18/2024:
-CT surgery aware patient here - update note reviewed
-Echo 08/23/24: Normal biventricular size and systolic function without regional wall motion abnormality. Abnormal (paradoxical) septal motion consistent with postoperative state. LV ejection fraction is 50-55% by visual assessment. S/p mitral valve
repair, no MR, mean gradient 3 mmHg, the anterior MV leaflet moves toward the LVOT in systole but no obstruction is seen. Normally functioning bioprosthetic aortic valve, mean 10 mmHg, and no AR. No pericardial effusion.
Heart Rhythm:
-post-op junctional rhythm was seen and he is wearing a rhythm star monitor. This has resolved on telemetry and he is now in NSR.
-Also with brief paroxysmal AFIB- he was not started on anticoagulation given brief duration and low risk score- see new plan above
Data Reviewed
-
EKG: Tracing Personally Visualized and interpreted (ectopic atrial rhythm) and Other (tele SR)
MRI: Report Reviewed by me (No acute intracranial abnormality noted)
Medical Tests (Nuc Med, Echo etc): Report Reviewed by me (echo as noted)
Labs: Labs Reviewed by me
[2024-08-25] MEDS: ROXICODONE 5 MG PO (20:14)
[2024-08-25] MEDS: VITAMIN B1 100 MG PO (20:14)
--- NOTE | 2024-08-25 22:09 | PTCARENOTE ---
Receive pt from ER. Pt alert oriented X3, in no distress. Denies double vision, headache, SOB, or chest pain. Reports pain related to the surgical procedure. The pain is 4-5/10. Pt assist X1 to bed, steady gait. Pt oriented to the room, call euceda
within reach. VSS (T=98.2, HR=59, JA=054/75, SpO2=98% on RA). Pt on telemonitor. Initially was tachycardic from 130s-160s. But later on NSR in the 70-90s. Will continue to monitor the pt.
[2024-08-26 03:25] VITALS: BP 140/72
[2024-08-26] MEDS: ROXICODONE 5 MG PO (03:39)
[2024-08-26 06:56] LABS: Blood Urea Nitrogen 10 mg/dl (9-20); Calcium 9.2 mg/dl (8.4-10.2); Carbon Dioxide 27 mmol/L (22-30); Chloride 103 mmol/L (98-107); Estimated Creatinine Clearance > 125 ml/min; Glucose 120 mg/dl (70-99); Potassium 4.6 mmol/L (3.5-5.1); Sodium 138 mmol/L (135-145); eGFR > 60.00
[2024-08-26 07:15] VITALS: BP 119/72
--- NOTE | 2024-08-26 07:15 | W.PN.HOSP.TC ---
Addendum entered and electronically signed by Olive Sarah MD 08/26/24 13:52:
I saw and evaluated the patient. I reviewed the resident�s note and agree with findings and plan as documented in the resident�s note.
Anxious to go home. No more symptoms overnight.
Exam unremarkable
Short run of A-fib last night
He is agreeable for Eliquis
Aspirin discontinued
Anti-MuSK and acetylcholine receptor antibody pending at discharge patient should follow-up with neurology for workup of diplopia
This is likely consider CTA at this point however about test are pending
Case discussed with neurology and cardiology
Discussed with significant other at bedside
Discharge
Original Note:
Today's Communication/Plan
-
-Discharge
Assessment / Plan
Assessment / Plan
#Diplopia
-Symptoms resolved
-CT head and neck unremarkable
-MRI without contrast without any evidence of stroke
-Neurology on board: Recommended DAPT if no contraindication from cardiology perspective-cardiothoracic surgery:(Okay to initiate DAPT)
-Cardiology recommended to start Eliquis and metoprolol 25 considering the symptoms can be symptoms of TIA and recommended discontinue aspirin (CHADS2-VASC = 3) --had a paroxysmal A fib at the hospital yesterday
-Hemoglobin A1c:5.3, TFTs: N, folat:N, LDL pending
-Follow acetylcholine receptor antibody and musk antibody: pending
# Recent surgical aortic valve replacement-prosthetic, mitral valve repair, left atrial appendage exclusion
- Recent surgery of PFO/ASD closure on 08-19-[address] Heck-CT
- Cardiothoracic surgery was consulted
# History of transient atrial fibrillation postoperatively
# Anemia
-History of acute postoperative blood loss anemia from the surgery on 08/18/2024
-Iron and low normal B12 to be replaced. Patient also had acute postoperative blood loss anemia
# History of heavy alcohol use
-25-50 beers per week last use was 10 days ago
-Thiamine ordered
-vit B 1pending
# DVT prophylaxis-Eliquis
# Full code
Anticipated Discharge: Today
Subjective/Interval History
-
Date of Service: August 26, 2024
Patient denies shortness of breath, chest pain, pain, palpitations, double vision, dizziness or confusion over the night.
Objective Data
-
Labs:
Laboratory Results
08/26/24
06:13
WBC Pending
Hgb Pending
Hct Pending
Plt Count Pending
Sodium 138
Potassium 4.6
Chloride 103
Carbon Dioxide 27
BUN 10
Creatinine 0.7
Glucose 120 H
Calcium 9.2
Vital Signs:
Vital Signs
Temp Pulse Resp BP Pulse Ox
98.2 F 69 18 140/72 95
08/26/24 03:25 08/26/24 03:25 08/26/24 03:25 08/26/24 03:25 08/26/24 03:25
I&O
08/25/24 08/26/24 08/27/24
06:59 06:59 06:59
Intake Total 960 / 960
Balance 960 / 960
Review of Systems
-
History Source: Patient
Constitutional: Reports No Symptoms
Physical Exam
-
General: Well Developed, Well Nourished and Comfortable
HEENT: Normocephalic and Atraumatic
Respiratory: Clear to Auscultation
Cardiac: Regular Rhythm and S1/S2
GI: Soft, Nontender and Nondistended
Musculoskeletal: No Clubbing, No Cyanosis and No Edema
Skin: Warm and Dry
Neuro: Awake, Alert, Oriented, AO x 3 and Other
[2024-08-26 07:18] LABS: Hemoglobin 10.6 g/dL (13.0-18.0); Mean Corp Hgb Conc. 34.2 g/dL (33.0-37.0); Mean Corpuscular Hgb 32.2 pg (27.0-31.0); Mean Corpuscular Volume 94.2 fL (80.0-94.0); Mean Platelet Volume 8.4 fL (7.4-10.4); Platelet Count 263 10^3/uL (130-400); Red Blood Cell Count 3.29 10^6/uL (4.70-6.10); Red Cell Dist. Width 11.9 % (11.5-14.5); White Blood Cell Count 7.7 10^3/uL (4.8-10.8)
[2024-08-26] MEDS: ASPIR LOW (ENTERIC COATED) 81 MG PO (08:22)
[2024-08-26] MEDS: VITAMIN B-12 1000 MCG PO (08:22)
[2024-08-26] MEDS: NEURONTIN 100 MG PO (08:22)
[2024-08-26] MEDS: VITAMIN B1 100 MG PO (08:23)
[2024-08-26] MEDS: TYLENOL 650 MG PO (08:28)
[2024-08-26] MEDS: LOW STRENGTH ASPIRIN 81 MG PO (08:34)
[2024-08-26] MEDS: FEOSOL 325 MG PO (08:34)
--- NOTE | 2024-08-26 10:27 | W.PN.NEURO.1 ---
Today's Communication / Plan
-
.
Subjective/Objective
Subjective Data
Date of Service: August 26, 2024
Neurology follow-up note.
Mr. Angel reports no recurrent visual symptoms since admission. He denied transient motor, sensory speech or language deficits.
Brain MRI showed no acute infarcts.
Labs: Free T4, TSH�normal, globin A1c�5.3
PMH: Learning impairment, h/o myxomatous MV with severe MR, DLP, IGT, intraventricular conduction defect,
PSH: MV repair, bio AVR, and SAMANTA exclusion (08/18/2024)
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
FH: Not contributory
All:NKDA
ROS: Positive for diplopia
General: Well developed. In no acute distress.
Cardio: Regular rate and rhythm without murmur. Extremities are without cyanosis or edema.
Neuro:
Mental Status: Alert, oriented to person, place, and date. Good fund of knowledge. Follows complex requests across the midline. Comprehension, naming, and repetition intact. Unable to do serial sevens. Anxious mood.
Cranial Nerves: Pupils are equally round and reactive to light. EOMs full. Visual jerome full to confrontation. No ptosis. No nystagmus. V1-V3 intact to light touch and pinprick bilaterally, symmetric. Face symmetric. Normal hearing AU. The
palate elevated well. SCMs and traps 5/5. Tongue midline. No dysarthria.
Motor: Normal bulk and tone. No pronator or arm drift. Strength 5/5 throughout. No clonus.
Sensory: No extinction to DSS
Coordination: No dysmetria or tremor.
Gait: deferred
Assessment and Plan:
I. Recurrent diplopia.
II. PA A-Fib. [id number] Score 3.
III. Status post MV repair, bio AVR, and SAMANTA exclusion
-Continue Telemetry monitoring
-Brain MRI without
-Please follow-up LDL, MG panel
-Would defer anticoagulation recommendations to cardiology service in view of recent SAMANTA.
-DVT prophylaxis.
-Outpatient neurology follow-up.
I personally reviewed all radiology and labs along with past medical records pertinent to current medical problems. Total time spent in patient care is 35 minutes.
Thank you for allowing us to participate in the care of this patient. Please do not hesitate to contact us with any questions or concerns
Objective Data
Vital Signs
Temp Pulse Resp BP Pulse Ox
37.0 C 79 18 119/72 95
08/26/24 07:15 08/26/24 07:15 08/26/24 07:15 08/26/24 07:15 08/26/24 07:15
Lab Results
08/26/24 06:13
08/26/24 06:13
PT 14.2 Sec (11.4-14.6) 08/25/24 07:47
INR 1.05 08/25/24 07:47
APTT 40.7 Sec (23.4-35.0) H 08/25/24 07:47
Sodium 138 mmol/L (135-145) 08/26/24 06:13
Potassium 4.6 mmol/L (3.5-5.1) 08/26/24 06:13
BUN 10 mg/dl (9-20) 08/26/24 06:13
Glucose 120 mg/dl (70-99) H 08/26/24 06:13
Calcium 9.2 mg/dl (8.4-10.2) 08/26/24 06:13
Vitamin B12 Cancelled 08/25/24 12:37
Patient Allergies
No Known Allergies Allergy (Verified 08/09/24 16:05)
Vital Signs and Labs
-
Vital Signs and Labs:
Vital Signs
Temp Pulse Resp BP Pulse Ox
37.0 C 79 18 119/72 95
08/26/24 07:15 08/26/24 07:15 08/26/24 07:15 08/26/24 07:15 08/26/24 08:00
Lab Results
08/26/24 06:13
08/26/24 06:13
PT 14.2 Sec (11.4-14.6) 08/25/24 07:47
INR 1.05 08/25/24 07:47
APTT 40.7 Sec (23.4-35.0) H 08/25/24 07:47
Sodium 138 mmol/L (135-145) 08/26/24 06:13
Potassium 4.6 mmol/L (3.5-5.1) 08/26/24 06:13
BUN 10 mg/dl (9-20) 08/26/24 06:13
Glucose 120 mg/dl (70-99) H 08/26/24 06:13
Calcium 9.2 mg/dl (8.4-10.2) 08/26/24 06:13
Vitamin B12 Cancelled 08/25/24 12:37
Medications
-
Medications:
Generic Name Dose Route Start Last Admin
Trade Name Freq PRN Reason Stop Dose Admin
Acetaminophen 650 mg 08/25/24 15:04 08/26/24 08:28
Acetaminophen 325 Mg Tablet PO 09/22/24 15:03 650 mg
Q4HPRN PRN Administration
mild pain,headache,temp >101F
Aspirin 81 mg 08/26/24 09:00 08/26/24 08:34
Aspirin 81 Mg Chewable Tablet PO 09/23/24 08:59 81 mg
DAILY LUCIUS Administration
Bisacodyl 10 mg 08/25/24 14:56
Bisacodyl 10 Mg Rectal Suppository RECTAL 09/22/24 14:55
[id number] PRN
constipation
Cyanocobalamin 1,000 mcg 08/26/24 08:00 08/26/24 08:22
Cyanocobalamin 1,000 Mcg Tablet PO 09/23/24 07:59 1,000 mcg
DAILY LUCIUS Administration
Cyclobenzaprine HCl 5 mg 08/25/24 17:46 08/25/24 17:53
Cyclobenzaprine 10 Mg Tablet PO 09/22/24 17:45 5 mg
Q8HPRN PRN Administration
muscle spasm
Ferrous Sulfate 325 mg 08/25/24 16:00 08/26/24 08:34
Ferrous Sulfate 325 Mg Tablet PO 09/22/24 15:59 325 mg
DAILY LUCIUS Administration
Furosemide 20 mg 08/25/24 14:56
Furosemide 20 Mg Tablet PO 09/22/24 14:55
DAILYPRN PRN
weight gain of 3 pds
Gabapentin 100 mg 08/25/24 16:00 08/26/24 08:22
Gabapentin 100 Mg Capsule PO 09/22/24 15:59 100 mg
TID LUCIUS Administration
Oxycodone HCl 5 mg 08/25/24 14:56 08/26/24 03:39
Oxycodone 5 Mg Regular Release Tablet PO 09/08/24 14:55 5 mg
Q4HPRN PRN Administration
severe pain
Polyethylene Glycol 17 grams 08/26/24 08:00 08/26/24 08:23
Polyethylene Glycol Powder 17 Grams Packet PO 09/23/24 07:59 Not Given
DAILY LUCIUS
Senna/Docusate Sodium 1 tablet 08/25/24 20:00 08/26/24 08:23
Docusate W/Senna (Luana-Colace) Tablet PO 09/22/24 19:59 Not Given
BID LUCIUS
Sodium Chloride 0 flush 08/25/24 16:00
Sodium Chloride 0.9% (Flush) Syringe IV 09/22/24 15:59
PER PROTOCOL LUCIUS
Thiamine HCl 100 mg 08/25/24 20:00 08/26/24 08:23
Thiamine 100 Mg Tablet PO 09/22/24 19:59 100 mg
BID LUCIUS Administration
Home Medications
-
Home Medications
aspirin 81 mg chewable tablet 81 mg PO DAILY Blood clot prevention/tx #0 tabs 08/22/24
acetaminophen 325 mg tablet 650 mg (2 x 325 mg) PO Q4HPRN PRN mild pain,headache,temp >101F #0 tabs 08/23/24
cyclobenzaprine 10 mg tablet 5 mg (1/2 x 10 mg) PO Q8HPRN PRN muscle spasm #10 tabs 08/23/24
gabapentin 100 mg capsule 100 mg PO TID post-op nerve pain #30 caps 08/23/24
oxycodone 5 mg tablet 5 mg PO Q4HPRN PRN severe pain #10 tabs 08/23/24
furosemide 20 mg tablet (Lasix) 20 mg PO DAILYPRN PRN weight gain of 3 pds 08/25/24
[2024-08-26 11:20] VITALS: BP 132/80
--- NOTE | 2024-08-26 11:48 | W.PN.CD ---
Today's Communication / Plan
-
start Toprol XL 25mg daily
eliquis 5mg bid
stop ASA
d/c planning
please call us with additional questions
Impression / Plan
-
Diplopia:
-possible TIA, so with recent PAF, recommend Eliquis 5 mg PO BID alone
Heart Rhythm:
-post-op junctional rhythm was seen and he is wearing a rhythm star monitor. This has resolved on telemetry and he is now in NSR.
-He had post op A fib; then had paroxysmal A fib here yesterday evening
-start Toprol XL 25mg daily
-CHADS2-VASC = 3. eliquis 5mg bid for OAC
Severe myxomatous mitral regurgitation and moderate/severe aortic valve insufficiency s/p radical MV repair, bio AVR, and SAMANTA exclusion for severe myxomatous MV with severe MR and moderate/severe aortic valve insufficiency with a dilating LV;
Heck, 08/18/2024:
-Echo 08/23/24: Normal biventricular size and systolic function without regional wall motion abnormality. Abnormal (paradoxical) septal motion consistent with postoperative state. LV ejection fraction is 50-55% by visual assessment. S/p mitral valve
repair, no MR, mean gradient 3 mmHg, the anterior MV leaflet moves toward the LVOT in systole but no obstruction is seen. Normally functioning bioprosthetic aortic valve, mean 10 mmHg, and no AR. No pericardial effusion.
-stable
HTN
-resume Toprol Xl
Physical Exam
Vital Signs/Labs
Vital Signs
Temp Pulse Resp BP Pulse Ox
98.6 F 79 18 119/72 95
08/26/24 07:15 08/26/24 07:15 08/26/24 07:15 08/26/24 07:15 08/26/24 08:00
08/25/24 08/26/24 08/27/24
06:59 06:59 06:59
Actual Weight 78.471 kg
08/26/24 06:13
08/26/24 06:13
PT 14.2 Sec (11.4-14.6) 08/25/24 07:47
INR 1.05 08/25/24 07:47
APTT 40.7 Sec (23.4-35.0) H 08/25/24 07:47
TSH 1.23 uIU/ml (0.47-4.68) 08/25/24 14:03
Free T4 1.22 ng/dl (0.78-2.19) 08/25/24 14:03
Physical Exam
Constitutional: No acute distress and Comfortable
EENT: Moist mucous membranes
Cardiovascular: Rhythm & rate is regular, Pedal edema is absent, JVD pressure is normal and Systolic murmur absent
Respiratory: Respiratory effort normal and Lungs clear to auscul.
Neuro/Psych: AO x 3
Data Reviewed
-
Date of Service: August 26, 2024
EKG: Other (Tele: paroxysmal A fib, and now back in sinus)
Labs: Labs Reviewed by me
[2024-08-26] MEDS: ELIQUIS 5 MG PO (12:02)
[2024-08-26 12:03] LABS: Glycohemoglobin (HgbA1c) 5.3 % (4.0-5.6)
[2024-08-26] MEDS: TOPROL XL 25 MG PO (12:37)
--- NOTE | 2024-08-26 13:17 | W.DCSUMMARY ---
Discharge Summary
Discharge Data
Date of Admission: 08/25/24
Date of Discharge: 08/26/24
-
Pending Results: Yes
Additional Pending Results:
Pending Labs:LDL, Vit B1, acetylcholine receptor antibody and musk antibody
Hospital Course
Disposition : Home
Primary care physician : Yolanda Hicks PA-C
Principal Discharge diagnosis :Diplopia, Paroxysmal atrial fibrillation
Chronic Discharge diagnosis : Recent surgical aortic valve replacement-prosthetic, mitral valve repair, left atrial appendage exclusion, Anemia, Hypertension, Mild ascending aorta dilatation, History of alcohol use
Hospital Course : The patient is a 58-year-old male with who presented to the ER after having a third episode of double vision problem. The patient had a recent surgery of aortic valve replacement and mitral valve repair on 08/18/2024 and had been
discharged on 08/23/2024. Patient had 2 episodes of double vision problem during his hospitalization cardiac valve surgery hospitalization which ended in 1 minute and he had a third episode of double vision on 08/25/2024 for which he presented to ER.
At ER admission, he was obtained a head and neck CT which was unremarkable for carotid atherosclerotic narrowing or bilateral internal carotid artery dissection or bilateral vertebral artery dissection. He was seen by neurology and cardiology.
Additionally, he was discussed with cardiothoracic team. The patient was admitted to telemetry for further management and treatment. He was obtained brain MRI which was not suggesting any acute infarct. He was tested for vitamin B12, folate,
vitamin B1, TFTs, LDL and acetylcholine receptor antibody and musk antibody. He was started on vitamin B12 due to finding with his low level of vitamin B12. He was started on iron supplement due to having iron deficiency anemia with hemoglobin
level of 10.6. He was also started on thiamine, given history of heavy alcohol use and having diplopia. The patient had paroxysmal A-fib following his admission on 08/25/2024. Therefore, cardiology started Eliquis and low-dose of metoprolol.
#Other medical problems include Recent surgical aortic valve replacement-prosthetic, mitral valve repair, left atrial appendage exclusion, Anemia, Hypertension, Mild ascending aorta dilatation, History of alcohol use. These problems were stable
during the hospitalization and treated as able to.
Important imaging findings :
Head CT 08/25/2024
FINDINGS:
There is no recent intracranial infarction, intracranial hemorrhage, mass effect or midline shift. The ventricles, cisterns and sulci are within the limits of normal. The brainstem and posterior fossa structures demonstrate no significant focal
abnormality. The included paranasal sinuses and mastoid air cells are essentially year.
IMPRESSION:
No acute intracranial abnormality.
ASPECT score: 10
The findings were communicated to [place] MD of the Emergency Department on 08/25/2024 7:56 AM through [employer].
Electronically signed by Nabil Cha MD, 08/25/2024 7:[address] 08/25/2024
FINDINGS:
CTA Neck: The included portions of the thoracic aortic arch are normal in caliber and homogeneous in appearance. The common carotid arteries are approximately equal and symmetric bilaterally. The carotid bifurcations are patent bilaterally without
atherosclerotic narrowing including the proximal internal carotid arteries bilaterally. The internal carotid arteries are approximately equal and symmetric including distally through the carotid siphons bilaterally. There are no findings to suggest
internal carotid artery dissection bilaterally. The left vertebral artery is slightly dominant. There are no significant focal finding seen within the vertebral arterial system bilaterally including no findings to suggest vertebral artery dissection
bilaterally. There is tapering of the distal right vertebral artery.
CTA Head: There is blood flow through the levelock of [place] into the proximal anterior, middle and posterior intracranial arterial circulations bilaterally without significant proximal arterial vessel cut off, stenosis or displacement. The basilar
artery is mildly tortuous without significant focal intrinsic abnormality.
Additional: Prior median sternotomy with sternal wires are noted. The thyroid gland is homogeneous.
IMPRESSION:
No demonstrable carotid atherosclerotic narrowing, bilateral internal carotid artery dissection or bilateral vertebral artery dissection. Mildly dominant left vertebral artery.
No proximal intracranial arterial stenosis bilaterally.
Electronically signed by Nabil Cha MD, 08/25/2024 8:14 AM
Brain MRI 08/25/2024
FINDINGS:
There is no abnormal signal intensity on diffusion imaging to suggest acute infarct.
No abnormal signal intensity, evidence of mass, mass effect, midline shift, or extra-axial collection.
Atrophy: No significant atrophy.
Ventricles: No hydrocephalus.
Sinuses: The visualized paranasal sinuses are clear.
Mastoids: The mastoid air cells are clear.
Vascular structures: Normal flow-voids in the vascular structures at the skull base.
The orbital structures are unremarkable as far as visualized. No orbital mass identified. The orbital apex is preserved. The optic chiasm is unremarkable. Suprasellar cistern is patent.
Incidental note is made of a small ovoid 5.5 mm cystic structure in the left fossa of Rosenmuller, most consistent with retention cyst.
IMPRESSION:
No acute intracranial abnormality noted.
Procedure findings :
Discharge Plan
-
Patient Disposition: Home (Routine Discharge)
Discharge Diagnosis/Procedures: Diplopia
Paroxysmal atrial fibrillation
Recent surgical aortic valve replacement-prosthetic, mitral valve repair, left atrial appendage exclusion
Anemia
Hypertension
Mild ascending aorta dilatation
History of alcohol use
Diet: Low Cholesterol, Low Sodium and Restrict fluids to 48 oz
Activity: As tolerated
Driving Restrictions: As prior to admission
Bathing Restrictions: None
Activity Restrictions/Additional Instructions:
Workup of anemia. Follow-up with the GI doctor and your primary physician.
Blood tests such as Anti-MuSK antibody and acetylcholine receptor antibodies pending at discharge. You also need to follow-up with neurology to complete the workup of double vision. Do not drive if you have vision problems.
Referrals:
Juan Antonio Johnson MD [Active] - in one to two weeks
Gal Gillespie MD [Active] -
Katie Moore MD [Active] - in less than 1 week
Yolanda Hicks PA-C [Family Provider] -
Prescriptions:
New
Eliquis 5 mg Tablet
5 mg PO BID 60 Days Qty: 120 0RF
ferrous sulfate [FeroSul] 325 mg (65 mg iron) Tablet
325 mg PO DAILY 60 Days Qty: 60 0RF
atorvastatin 40 mg tablet
40 mg PO QPM 60 Days Qty: 60 0RF
cyanocobalamin (vitamin B-12) [Vitamin B-12] 1,000 mcg Tablet
1,000 mcg PO DAILY 30 Days Qty: 30 0RF
metoprolol succinate 25 mg Tablet Extended Release 24 Hr
25 mg PO DAILY 60 Days Qty: 60 0RF
thiamine mononitrate (vit B1) 100 mg Tablet
100 mg PO BID 30 Days Qty: 60 0RF
Continued
cyclobenzaprine 10 mg Tablet
5 mg PO Q8HPRN PRN (Reason: muscle spasm) Qty: 10 0RF
acetaminophen 325 mg Tablet
650 mg PO Q4HPRN PRN (Reason: mild pain,headache,temp >101F ) Qty: 0 0RF
gabapentin 100 mg Capsule
100 mg PO TID Qty: 30 0RF
oxycodone 5 mg Tablet
5 mg PO Q4HPRN PRN (Reason: severe pain) Qty: 10 0RF
furosemide [Lasix] 20 mg tablet
20 mg PO DAILYPRN PRN (Reason: weight gain of 3 pds)
Discontinued
aspirin 81 mg Tablet,Chewable
81 mg PO DAILY Qty: 0 0RF
Discharge Orders:
Discharge Patient (As Directed); Ordered 08/26/24
Ordered By: Larissa Cooper
Discharge Date and Time
Print Language: NIGERIAN
[2024-08-26 13:28] LABS: HDL Cholesterol 33 mg/dl; LDL Cholesterol, Calculated 65 mg/dl; Total Cholesterol 122 mg/dl (50-199); Triglyceride 124 mg/dl (10-149); Very Low Density Lipoprotein 24 mg/dl (0-30)
--- NOTE | 2024-08-26 14:54 | PTCARENOTE ---
Received patient this am AAOX3. Pt OOB ambulating in the hallway with a steady gait independently. Tolerated diet well. Pt's lipid panel came back. Cholesterol 122 LDL-65 VLDL 24 HDL-33. Pt questioned why he was being discharged on Lipitor.
Spoke with Dr. Cooper. Pt stated ' that he is not going to take.' Considering LDL-65 ok for patient not to take Lipitor as per MD. Pt discharged home.
--- NOTE | 2024-08-26 16:23 | CM ---
Alert awake oriented patient who lives with SO Karina in a 2 story home with 2 step to enter and 15 steps to bed and bathroom. He is independent in activities of daily living.He is not driving .He was offered VN he declined need.Observation letter
given explained signed on chart.
Cardiac rehab hx / No SNF history
Pharmacy [facility]
PCP DR Hicks
PLAN Home he said cardiac rehab was set up to resume.
[2024-08-30 02:08] LABS: MuSK IgG Ab CBA IFA, Serum <1:10 (<1:10)
== END 2024-08-26 14:44 | disposition home or self-care (01) ==
LOC: 4 EAST ACU 12:14
PROVIDERS: Student in an Organized Health Care Education/Training Program; ADMITTING PHYSICIAN Hospitalist; CONSULT PHYSICIAN Internal Medicine; CONSULT PHYSICIAN Psychiatry & Neurology Neurology; EMERGENCY PHYSICIAN Emergency Medicine; FAMILY PHYSICIAN Physician Assistant Medical
DX: H53.2 Diplopia (principal); I48.0 Paroxysmal atrial fibrillation; H53.9 Unspecified visual disturbance; I10 Essential (primary) hypertension; I08.0 Rheumatic disorders of both mitral and aortic valves; F10.10 Alcohol abuse, uncomplicated; D50.9 Iron deficiency anemia, unspecified; E78.00 Pure hypercholesterolemia, unspecified; R07.9 Chest pain, unspecified; Z95.3 Presence of xenogenic heart valve; Z79.82 Long term (current) use of aspirin; Z87.891 Personal history of nicotine dependence; Z82.49 Family history of ischemic heart disease and other diseases of the circulatory system; Z82.3 Family history of stroke; Z66 Do not resuscitate; Z79.01 Long term (current) use of anticoagulants
CPT/HCPCS: 70450; 70496; 70498; 70551; 80048; 80053; 80061; 82607; 82728; 82746; 83036; 83540; 83550; 84425; 84439; 84443; 85025; 85027; 85610; 85730; 86366; 93005; 99285; G0378; Q9967

== ENCOUNTER 2024-09-28 07:57 | Outpatient (RCR) | payer OTHER, SELFPAY | END 2024-09-28 23:59 | disposition home or self-care (01) | LOC: CRHB 07:57 | PROVIDERS: ATTENDING PHYSICIAN Internal Medicine | DX: Z95.2 Presence of prosthetic heart valve (principal) | CPT/HCPCS: 93798 ==

== ENCOUNTER → 2025-03-13 15:38 | Outpatient (REF) | payer OTHER, SELFPAY | LOC: RCS 15:38 | PROVIDERS: ATTENDING PHYSICIAN Nurse Practitioner Acute Care; FAMILY PHYSICIAN Physician Assistant Medical | DX: Z95.2 Presence of prosthetic heart valve (principal); Z98.890 Other specified postprocedural states | CPT/HCPCS: 93306 ==